=== PATIENT | female | born 1950 | race Caucasian/White ===

== ENCOUNTER → 2018-05-01 07:34 | Outpatient (CLI) | payer MEDICARE, SELFPAY ==
--- NOTE | 2018-05-01 07:34 | DT_ITS ---
This patient was seen during an EMR downtime April 28, 2018 - May 05, 2018. This patient may have a combination of paper and electronic documentation or all paper documentation. All documentation is viewable within the e-chart portion of [facility] for each patient visit.
--- NOTE | 2018-05-01 07:41 | BI_ITS ---
MAMMOGRAPHY - BILATERAL SCREENING REASON FOR EXAM: Female, 67 years old. Routine annual screening examination. PERTINENT HISTORY: FAM HX OF PAT GRANDMOTHER @ AGE 58 T MAT AUNT @ AGE 50'S - RT NEEDLE BX 1999 - RT KERATOSIS AND LT MOLE - CURRENT BRUISE MEDIAL LT BREAST TECHNIQUE: Digital bilateral breast annette (3D mammographic acquisition) in the CC and MLO projections. 2-D mediolateral oblique (MLO) and craniocaudad (CC) views of both breasts were obtained. CAD: Full Field Digital Mammography with Computer Added Detection was performed. COMPARISON: 05/03/2016 and 04/21/2015 FINDINGS: Breast Composition: The breasts are heterogeneously dense, which may obscure small masses. There are no dominant masses or suspicious calcifications. No other significant abnormalities are identified. BI/SCREENING MAMM (CAD), BILAT IMPRESSION: Stable bilateral screening mammogram. Yearly follow-up mammogram recommended. (A) ASSESSMENT CATEGORY: BIRADS Category 2: Benign. A letter regarding these results will be sent to the patient by the facility within 30 days. Approximately 10% of breast cancers are not detected by mammography. A normal mammogram should not delay biopsy of a clinically suspicious abnormality. [id number] Electronically Signed: Sarah Arambula MD at 15:42 EDT Tel , Service support ,
== END ==
PROVIDERS: Family Provider Internal Medicine; PCP Internal Medicine; Visit Provider Internal Medicine
DX: Z12.31 Encounter for screening mammogram for malignant neoplasm of breast (principal); Z78.0 Asymptomatic menopausal state
CPT/HCPCS: 77063; 77067

== ENCOUNTER → 2018-05-06 10:33 | Outpatient (CLI) | payer MEDICARE, SELFPAY ==
--- NOTE | 2018-05-06 10:34 | BD_ITS ---
STUDY: DUAL ENERGY X-RAY ABSORPTIOMETRY / DXA REASON FOR EXAM: Female, 67 years old. Postmenopausal female. History of hormone therapy high exercise. TECHNIQUE: Bone Mineral Density (BMD) measurements of lumbar spine and bilateral hips were obtained. COMPARISON: May 03, 2016. FINDINGS: Lumbar Spine (L1-L4): g/cm2 (1.010) / T-score (-1.6) / Z-score (0.1) Findings are suggestive of osteopenia with a moderate fracture risk. Left Femur Total: g/cm2 (0.860) / T-score (-1.2) / Z-score (0.3) Left Femoral Neck: g/cm2 (0.747) / T-score (-2.1) / Z-score (-0.4) Right Femur Total: g/cm2 (0.860) / T-score (-1.2) / Z-score (0.3) Right Femoral Neck: g/cm2 (0.778) / T-score (-1.9) / Z-score (0.2) The T-Scores on the most recent prior examination were: Lumbar Spine (L1-L4): There has been worsening of bone density since the previous examination of -6.9%. Left Femur Total: There is worsening of the bone mineral density by -5%. Right Femur Total: There is worsening of the bone mineral density by -4% BD/Dexa Bone Density Study IMPRESSION: The patient is considered osteopenic as outlined below according to World Solomon Organization (WHO) criteria with a moderate fracture risk. There has been worsening of bone density since the previous examination. Reference Information: The T-score is the number of standard deviations above or below the standard which is normal for young adults at their peak bone mineral density. The World Health Organization (WHO) interprets the T-scores as follows: Above -1 Normal bone density Between -1 and -2.5 Osteopenia Equal to / or below -2.5 Osteoporosis As a practical clinical guideline, osteopenia may be graded as follows: Mild -1 through -1.5 Moderate -1.6 through -2.0 Severe -2.1 through -2.4 The Z-score is the number of standard deviations above or below age-matched controls. A Z-score of less than -1.5 would be considered abnormal. References: 1. NIH Osteoporosis and Related Bone Diseases http://www.osteo.org 2. International Society for Clinical Densitometry http://www.iscd.org 3. National Osteoporosis Foundation http://www.nof.org Electronically Signed: Bernabe Krueger DO at 11:16 EDT Tel [phone], Service support ,
== END ==
PROVIDERS: Family Provider Internal Medicine; PCP Internal Medicine; Visit Provider Internal Medicine
DX: Z78.0 Asymptomatic menopausal state (principal); M85.80 Other specified disorders of bone density and structure, unspecified site
CPT/HCPCS: 77080

== ENCOUNTER → 2018-09-23 08:55 | Outpatient (CLI) | payer MEDICARE, SELFPAY | PROVIDERS: Family Provider Internal Medicine; PCP Internal Medicine; Referring Provider Nurse Practitioner; Visit Provider Nurse Practitioner | DX: R55 Syncope and collapse (principal) | CPT/HCPCS: 93225; 93226 ==

== ENCOUNTER → 2018-09-26 15:39 | Outpatient (CLI) | payer MEDICARE, SELFPAY ==
--- NOTE | 2018-09-26 15:45 | ECHOD_ITS ---
Reason For Study: SYNCOPE Procedure This was a 2D Doppler, Color Flow transthoracic echocardiogram. The exam was of adequate technical quality. Exam performed in department. Left Ventricle Normal LV size. Left ventricular systolic function is normal. The estimated ejection fraction is 65 %. The global longitudinal strain = -21 % (normal). Diastolic function is indeterminate. No regional wall motion abnormalities noted. Right Ventricle Normal RV size. Normal systolic function. Atria The left atrium is mildly enlarged. Normal right atrium. No doppler evidence for ASD. Mitral Valve There is no mitral annular calcification. Mild diffuse mitral valve thickening. Equivocal mitral valve prolapse. Trivial mitral valve insufficiency. Tricuspid Valve Normal tricuspid valve. Mild tricuspid valve insufficiency. Right ventricular systolic pressure estimated to be 27 mmHg. Aortic Valve Trisinus/trileaflet aortic valve. Normal aortic valve. Pulmonic Valve The pulmonic valve is not well visualized. Trivial pulmonic valve insufficiency. Great Vessels Normal sized aortic root. Pericardium/Pleural No pericardial effusion. MMode/2D Measurements & Calculations LVIDd: 4.0 cm IVSd: 1.2 cm Ao root diam: 3.3 cm LVIDs: 2.2 cm LVPWd: 1.2 cm RVDd: 2.7 cm FS: 43.9 % LAV(MOD-bp): 39.5 ml LA A4 area: 16.3 cm2 LA dimension(2D): 3.7 cm LAV(MOD-bp) Indexed: 20.0 ml/m2 LAV(MOD-sp2): 32.9 ml LAV(MOD-sp4): 42.9 ml RA A4 area: 10.2 cm2 Time Measurements MV dec time: 0.29 sec Doppler Measurements & Calculations MV E max broderick: 69.9 cm/sec Lat Peak E' Broderick: 5.7 cm/sec Med Peak E' Broderick: 4.4 cm/sec MV A max broderick: 100.5 cm/sec E/E' lat: 12.3 E/E' med: 15.9 MV E/A: 0.70 Ao V2 max: 186.3 cm/sec LV V1 max: 125.2 cm/sec PA V2 max: 103.6 cm/sec Ao max P.9 mmHg LV V1 max P.3 mmHg TR max broderick: 245.6 cm/sec TR max P.1 mmHg Interpretation Summary Left ventricular systolic function is normal. The estimated ejection fraction is 65 %. The global longitudinal strain = -21 % (normal). The left atrium is mildly enlarged. Equivocal mitral valve prolapse. Mild diffuse mitral valve thickening. Trivial mitral valve insufficiency. Mild tricuspid valve insufficiency. Trivial pulmonic valve insufficiency. Right ventricular systolic pressure estimated to be 27 mmHg. Diastolic function is indeterminate. Ordering Physician: Mallorie Dai Referring Physician: FELICITY MEJIA Performed By: Juli Mora, COLBY, RVT
== END ==
PROVIDERS: Family Provider Internal Medicine; PCP Internal Medicine; Referring Provider Nurse Practitioner; Visit Provider Nurse Practitioner
DX: R55 Syncope and collapse (principal)
CPT/HCPCS: 93306

== ENCOUNTER → 2018-10-07 06:53 | Outpatient (CLI) | payer MEDICARE, SELFPAY ==
--- NOTE | 2018-10-07 07:38 | CDU_ITS ---
Reason For Study: neck pain Rt. Velocities/BP Lt. Velocities/BP Prox CCA 103/18.8 cm/sec. Prox CCA 83.3/14.7 cm/sec. Mid CCA 76.2/15.8 cm/sec. Mid CCA 83.8/19.9 cm/sec. Dist CCA 76.8/18.8 cm/sec. Dist CCA 75.6/18.2 cm/sec. Prox ICA 51.6/15.8 cm/sec. Prox ICA 53.4/15.8 cm/sec. Mid ICA 74.5/19.9 cm/sec. Mid ICA 69.2/19.9 cm/sec. Dist ICA 103/27.6 cm/sec. Dist ICA 114/33.4 cm/sec. Rt. ICA/CCA = 1.4. Lt. ICA/CCA = 1.4. Prox ECA 64.5/11.7 cm/sec. Prox ECA 62.7/10.6 cm/sec. Rt. Vert. 55.1/11.1 cm/sec. Lt. Vert. 64.5/14.7 cm/sec. Right Extracranial There is intimal thickening but no significant atherosclerotic plaque noted in the right common carotid artery. There is intimal thickening but no significant atherosclerotic plaque noted in the right internal carotid artery. There is intimal thickening but no significant atherosclerotic plaque noted in the right external carotid artery. Antegrade flow is noted in the right vertebral artery. Left Extracranial There is intimal thickening but no significant atherosclerotic plaque noted in the left common carotid artery. There is intimal thickening but no significant atherosclerotic plaque noted in the left internal carotid artery. There is intimal thickening but no significant atherosclerotic plaque noted in the left external carotid artery. Antegrade flow is noted in the left vertebral artery. Procedure Carotid Duplex [id number]. The exam was diagnostic. Exam performed in department. Interpretation Summary No significant atherosclerotic plaque or stenosis noted in the internal carotid arteries bilaterally. Flow within the vertebral arteries is antegrade bilaterally. Ordering Physician: Sophia Reza Performed By: Germán Butler RVT
--- NOTE | 2018-10-07 14:32 | STRESSREP ---
Stress Test Report Date: 10/07/2018 Procedure: Pharmacologic stress nuclear imaging study Indications: Chest pain Consent: Per the patient Procedure: The patient underwent pharmacologic (Regadenoson) evaluation with a peak heart rate of 76 beats per minute (50 predicted maximal heart rate) and a peak blood pressure of 140/72 mmHg. The baseline ECG demonstrated sinus bradycardia. The peak pharmacologic ECG demonstrated no obvious ECG changes. There were no cardiac dysrhythmias pretest, during pharmacologic infusion, or recovery. There was no complaint of chest discomfort during pharmacologic infusion or recovery. The examination was discontinued secondary to completion of protocol. Impression: 1. Pharmacologic (Regadenoson) evaluation 2. Peak pharmacologic ECG with no obvious ECG changes. 3. There were no cardiac dysrhythmias pretest, during pharmacologic infusion, or recovery. 4. Nuclear images pending Myocardial perfusion imaging study: Technique: The patient was injected with 11.6 millicuries of technetium 99m Cardiolite and subsequently rest SPECT Cardiolite nuclear imaging was obtained in the horizontal long, vertical long, and short axis views. The patient underwent pharmacologic (Regadenoson) evaluation with a peak heart rate of 76 beats per minute (50 % percent predicted maximal heart rate) and a peak blood pressure of 140/72 mmHg. The patient was injected with 33.7 millicuries of technetium 99m Cardiolite and subsequently stress SPECT Cardiolite nuclear imaging was obtained in the horizontal long, vertical long, and short axis views. A gated Cardiolite study at peak stress was obtained. Interpretation: Rest and stress SPECT Cardiolite nuclear imaging status post realignment, normalization, and attenuation correction demonstrate uniform tracer uptake in myocardial perfusion appearing within normal limits. There are no myocardial perfusion deficits appreciated on the resting or stress polar map images. There is end systolic thickening and brightening. The gated Cardiolite study demonstrates myocardial thickening and inward wall motion. The reported LVEF is 87 %. Impression: 1. Rest and stress SPECT Cardiolite nuclear imaging demonstrate relative uniform tracer uptake and myocardial perfusion appearing within normal limits. 2. The gated Cardiolite study reports an LVEF of 87 %. This note was generated with [employer] software. It may contain incorrect words, spelling, and punctuation that were not noted in checking the note before signing.
== END ==
PROVIDERS: Family Provider Internal Medicine; PCP Internal Medicine; Referring Provider Internal Medicine; Visit Provider Internal Medicine
DX: R07.89 Other chest pain (principal); R55 Syncope and collapse
CPT/HCPCS: 78452; 93017; 93880; A9500; A4216; J2785

== ENCOUNTER → 2019-09-30 09:18 | Outpatient (CLI) | payer MEDICARE, SELFPAY ==
[2018-10-09 15:27] VITALS: BMI 30.7
--- NOTE | 2019-09-30 09:27 | ECHOD_ITS ---
Reason For Study: IVCD Procedure This was a 2D Doppler, Color Flow transthoracic echocardiogram. Exam performed in department. Left Ventricle Normal LV size. The estimated ejection fraction is 60 %. Normal diastology for age. No regional wall motion abnormalities noted. Right Ventricle Normal RV size. Normal systolic function. Atria Normal left atrium. Normal right atrium. Mitral Valve There is no mitral valve stenosis. Trivial mitral valve insufficiency. Tricuspid Valve There is no tricuspid stenosis. Trivial tricuspid valve insufficiency. Pulmonary artery systolic pressure is 25 mmHg. Aortic Valve Trisinus/trileaflet aortic valve. There is no aortic stenosis. Trivial aortic valve insufficiency. Pulmonic Valve There is no pulmonic valvular stenosis. Trivial pulmonic valve insufficiency. Great Vessels Normal aortic root. Pericardium/Pleural No pericardial effusion. MMode/2D Measurements & Calculations LVIDd: 4.9 cm IVSd: 1.0 cm Ao root diam: 3.0 cm LVIDs: 3.0 cm LVPWd: 0.99 cm RVDd: 2.9 cm FS: 39.4 % LAV(MOD-bp): 40.9 ml LVAd ap4: 21.2 cm2 SV(MOD-sp4): 34.4 ml LAV(MOD-bp) Indexed: 22.7 ml/m2 EDV(MOD-sp4): 55.1 ml LAV(MOD-sp2): 43.3 ml EDV(sp4-el): 56.2 ml LAV(MOD-sp4): 37.9 ml LVAs ap4: 11.7 cm2 ESV(MOD-sp4): 20.7 ml ESV(sp4-el): 20.6 ml EF(MOD-sp4): 62.4 % EF(sp4-el): 63.4 % SV(sp4-el): 35.6 ml LA A4 area: 16.0 cm2 LA dimension(2D): 3.8 cm RA A4 area: 14.1 cm2 Doppler Measurements & Calculations MV E max broderick: 76.8 cm/sec Lat Peak E' Broderick: 7.0 cm/sec Med Peak E' Broderick: 4.9 cm/sec MV A max broderick: 82.8 cm/sec E/E' lat: 11.0 E/E' med: 15.7 MV E/A: 0.93 Ao V2 max: 148.8 cm/sec LV V1 max: 117.3 cm/sec PA V2 max: 85.7 cm/sec Ao max P.9 mmHg LV V1 max P.5 mmHg Ao V2 mean: 102.8 cm/sec Ao mean P.6 mmHg Ao V2 VTI: 37.9 cm PI end-d broderick: 76.1 cm/sec TR max broderick: 248.1 cm/sec TR max P.6 mmHg Interpretation Summary The estimated ejection fraction is 60 %. Trivial mitral valve insufficiency. Trivial tricuspid valve insufficiency. Pulmonary artery systolic pressure is 25 mmHg. Trivial aortic valve insufficiency. Ordering Physician: Sophia Reza Referring Physician: Sophia Reza Performed By: Yamileth Causey, COLBY, RVT
== END ==
PROVIDERS: Family Provider Internal Medicine; PCP Internal Medicine; Referring Provider Internal Medicine; Visit Provider Internal Medicine
DX: I45.4 Nonspecific intraventricular block (principal)
CPT/HCPCS: 93306

== ENCOUNTER → 2019-11-05 12:47 | Outpatient (CLI) | payer MEDICARE, SELFPAY ==
[2018-10-09 15:27] VITALS: BMI 30.7
[2019-10-28 15:14] VITALS: BMI 26.2
--- NOTE | 2019-11-05 12:49 | BI_ITS ---
MAMMOGRAPHY - BILATERAL SCREENING REASON FOR EXAM: Female, 69 years old. Routine annual screening examination. PERTINENT HISTORY: Grandmother with breast cancer. Remote right surgical breast biopsy. TECHNIQUE: Digital bilateral breast rani (3D mammographic acquisition) in the CC and MLO projections. 2-D mediolateral oblique (MLO) and craniocaudad (CC) views of both breasts were obtained. CAD: Full Field Digital Mammography with Computer Added Detection was performed. COMPARISON: Comparison is made with prior study dated May 01, 2018 and May 03, 2016. FINDINGS: Breast Composition: The breasts are heterogeneously dense, which may obscure small masses. There are no dominant masses or suspicious calcifications. Focal scar is seen in the deep slightly upper lateral portion of the right breast in keeping with prior surgical biopsy. No other significant abnormalities are identified. There has been no significant change since the prior study. BI/SCREEN MAMM (CAD) W/RANI BILAT IMPRESSION: Stable bilateral screening mammogram. Yearly follow-up mammogram recommended. (A) ASSESSMENT CATEGORY: BIRADS Category 2: Benign. A letter regarding these results will be sent to the patient by the facility within 30 days. Approximately 10% of breast cancers are not detected by mammography. A normal mammogram should not delay biopsy of a clinically suspicious abnormality. [id number] Electronically Signed: Mina Berry, at 14:19 EST , Service support ,
== END ==
PROVIDERS: Family Provider Internal Medicine; PCP Internal Medicine; Referring Provider Internal Medicine; Visit Provider Internal Medicine
DX: Z12.31 Encounter for screening mammogram for malignant neoplasm of breast (principal); Z78.0 Asymptomatic menopausal state; Z80.3 Family history of malignant neoplasm of breast
CPT/HCPCS: 77063; 77067

== ENCOUNTER → 2020-03-15 08:17 | Outpatient (CLI) | payer MEDICARE, SELFPAY ==
[2019-10-28 15:14] VITALS: BMI 26.2
--- NOTE | 2020-03-15 08:21 | CT_ITS ---
STUDY: CT BRAIN WITHOUT CONTRAST REASON FOR EXAM: Female, 69 years old. HEADACHE X 2 MONTHS RADIATION DOSAGE (If Supplied By Facility): CTDIvol = ( 44.99 ) mGy, DLP = ( 745.49 ) mGycm TECHNIQUE: Transaxial CT imaging of the brain was performed without administration of intravenous contrast material. Individualized dose optimization techniques were used for this CT. COMPARISON: No relevant priors. FINDINGS: Normal soft tissue structures. Normal calvarium. Technique calcification is seen along the anterior aspect of the roof of the third ventricle. A tiny colloid cyst should be ruled out. There is mild cerebral atrophy with widening of the extra-axial spaces and ventricular dilatation. There are areas of decreased attenuation within the white matter tracts of the supratentorial brain, consistent with microvascular disease changes. There are small punctate calcifications of the basal ganglia which are seen in the aging brain as a normal variant. Normal brainstem. Normal cerebellum. There is no intracranial hemorrhage. There are no findings of an acute ischemic infarction. Atherosclerotic calcification of the cavernous portions of the internal carotid arteries bilaterally. Normal visualized paranasal sinuses. CT/Brain/Head without Contrast IMPRESSION: Chronic involutional changes of the brain. Tiny calcification is seen along the roof of the anterior aspect of the third ventricle. A tiny colloid cyst should be ruled out. Electronically Signed: Mina Berry, at 8:45 EDT , Service support ,
== END ==
PROVIDERS: PCP Internal Medicine; Referring Provider Internal Medicine; Visit Provider Internal Medicine
DX: R51 Headache (principal)
CPT/HCPCS: 70450

== ENCOUNTER → 2020-03-28 12:24 | Outpatient (CLI) | payer MEDICARE, SELFPAY ==
[2019-10-28 15:14] VITALS: BMI 26.2
--- NOTE | 2020-03-28 12:32 | MRI_ITS ---
STUDY: MRI BRAIN WITHOUT CONTRAST REASON FOR EXAM: Female, [address] -- galarza''s, left eye pain x 4 months, NKI TECHNIQUE: Standardized multiplanar fat and water weighted pulse sequences were obtained. COMPARISON: None. FINDINGS: There is mild cerebral atrophy with widening of the extra-axial spaces and ventricular dilatation. There are a limited number of small white matter hyperintensities, distributed throughout the deep white matter tracts of the cerebral hemispheres, consistent with mild chronic white matter ischemic changes. There is no evidence for recent intracranial ischemia or other cause of cytotoxic edema on diffusion weighted imaging (DWI). Normal T2* images of the brain without demonstrated susceptibility artifact. There is no demonstrated hemosiderin stain. Normal bilateral basal ganglia. Normal thalami. There is no extra-axial fluid accumulation. Normal flow voids within the major intracranial circulation suggesting patency by spin echo criteria. Normal sella turcica, pituitary gland, infundibular stalk, optic chiasm and hypothalamus. Normal tectal plate and pineal gland. Normal midbrain, tony and medulla. Normal cerebellum. Normal basal cisterns. Normal bilateral temporal bones. Normal bilateral internal auditory canals. No demonstrated orbital abnormality, within the constraints of a routine brain study. Normal visualized paranasal sinuses. Normal calvarium and skull base. Normal visualized soft tissue structures. Normal visualized upper cervical spine. MRI/Brain without Contrast IMPRESSION: Involutional changes of the brain, as described above. No acute infarct. Electronically Signed: Davidson Quiroga MD at 13:43 EDT Tel , Service support ,
== END ==
PROVIDERS: PCP Internal Medicine; Referring Provider Internal Medicine; Visit Provider Internal Medicine
DX: R90.89 Other abnormal findings on diagnostic imaging of central nervous system (principal)
CPT/HCPCS: 70551

== ENCOUNTER 2021-01-18 10:23 | Outpatient (RCR) | payer MEDICARE, SELFPAY ==
[2020-05-25 11:53] VITALS: BMI 26.9
== END 2021-01-18 23:59 ==
LOC: IMMUN 10:23
PROVIDERS: PCP Internal Medicine; Referring Provider Family Medicine; Visit Provider Family Medicine
DX: Z23 Encounter for immunization (principal)
CPT/HCPCS: 0011A; 0012A; 91301

== ENCOUNTER 2022-09-02 08:55 | Emergency (ER) | payer MEDICARE, SELFPAY ==
[2022-09-02 08:57] VITALS: BP 116/67; PULSE 63; RESP 14; TEMP 36.1; O2SAT 100; BMI 28.3
--- NOTE | 2022-09-02 09:03 | EX.ED.UPPERE ---
HPI History of Present Illness Chief Complaint: Upper Extremity Injury Narrative Narrative: Patient presents with her significant other with injury to her right wrist that she sustained this morning. They state that there was a dog gate/baby gate at the bottom of the stairs to prevent the dogs from going up the stairs. Usually, when the patient comes downstairs, she removes the gait, but today she tried to step over it. She tripped and fell onto her right wrist onto hardwood floor/tile. She denies hitting her head or loss of consciousness. She complains of deformity to her right wrist with pain and swelling. She did vomit once when she went back upstairs to get dressed to come to the emergency department. They state it was a very small amount. They thought it was most likely secondary to pain. She denies other injury. She is right-hand dominant. [facility] Medical History (Updated 09/02/22 @ 11:17 by Matthew Arroyo MD) Atherosclerotic heart disease of [place] coronary artery without angina pectoris Benign essential hypertension CAD (coronary artery disease) Essential hypertension Gastroesophageal reflux disease Hypothyroidism IBS (irritable bowel syndrome) Non-rheumatic mitral regurgitation Obstructive sleep apnea syndrome Presence of stent in coronary artery (~07/08/09) Pure hypercholesterolemia Home Medications amlodipine 5 mg-benazepril 20 mg capsule (Lotrel) 1 cap PO DAILY 10/07/18 [History Last Taken Unknown] aspirin 325 mg tablet 325 mg PO DAILY 10/07/18 [History Last Taken Unknown] fenofibrate 160 mg tablet 160 mg PO DAILY 10/07/18 [History Last Taken Unknown] lansoprazole 30 mg capsule,delayed release (Prevacid) 30 mg PO DAILY 10/07/18 [History Last Taken Unknown] levothyroxine 75 mcg tablet (Synthroid) 75 mcg PO DAILY 10/07/18 [History Last Taken Unknown] naproxen sodium 220 mg tablet (Aleve) 220 mg PO BID PRN 10/07/18 [History Last Taken Unknown] oxybutynin chloride 5 mg tablet,extended release 24 hr (Ditropan XL) 5 mg PO DAILY 10/07/18 [History Last Taken Unknown] rosuvastatin 20 mg tablet (Crestor) 20 mg PO DAILY 10/07/18 [History Last Taken Unknown] sucralfate 1 gram tablet 1 g PO BID 10/07/18 [History Last Taken Unknown] escitalopram oxalate 20 mg tablet (Lexapro) 20 mg PO DAILY 10/09/18 [History Last Taken Unknown] calcium carb 300 mg-D3 800 unit-mag ox 25 mg-photocopying equipment mechanic 0.5 mg-chase-Zn tablet (Caltrate + D3 Plus Minerals) 1 tab PO DAILY 10/28/19 [History Last Taken Unknown] metoprolol tartrate 25 mg tablet 12.5 mg PO BID 10/28/19 [History Last Taken Unknown] nitroglycerin 0.4 mg sublingual tablet 0.4 mg sublingual Q5-15M PRN chest pain #25 tabs 10/28/19 [Rx Last Taken Unknown] hydrocodone-acetaminophen 5-325mg 5mg-325mg 1 tab PO Q6H PRN pain 3 days #12 tabs 09/02/22 [Rx Last Taken Unknown] Allergy/AdvReac Type Severity Reaction Status Date / Time clopidogrel Allergy Severe Rash Verified 09/02/22 08:59 milk Allergy Unknown Unknown Verified 09/02/22 08:59 ezetimibe [From Vytorin] AdvReac Severe myalgias Verified 09/02/22 08:59 simvastatin [From Vytorin] AdvReac Severe myalgias Verified 09/02/22 08:59 fenofibrate [From Tricor] AdvReac Unknown Unknown Verified 09/02/22 08:59 Family History Mother CAD (coronary artery disease) History of coronary artery bypass surgery Surgical History History of appendectomy History of total hysterectomy Presence of coronary angioplasty implant and graft (~07/08/09) Social History Smoking Status: Never smoker alcohol intake: current details: occasional ROS ROS ED ROS Narrative Constitutional: No fever, no chills. HEENT: No sore throat. No neck pain. No loss of vision. No rhinorrhea. Cardiovascular: No chest pain. No palpitations. No pedal edema. Respiratory: No cough, no shortness of breath. Abdominal: No abdominal pain. No nausea. No vomiting. Genitourinary: No dysuria. No hematuria. Musculoskeletal: No myalgias. Right wrist pain and deformity. Neurologic: No headaches. No dizziness. No lightheadedness. Skin: No rash. No change in color. Psychiatric: No depression. No anxiety. EXAM Physical Exam Narrative Exam Narrative: Afebrile. Vital signs noted. HEENT: Normocephalic. Atraumatic. PERRL, EOMI. Neck soft and supple. No point tenderness or step off. Cardiovascular: Regular rate and rhythm. No murmurs, rubs, or gallops appreciated. Respiratory: No tachypnea. Lungs clear to auscultation bilaterally. Gastrointestinal: Abdomen soft, nontender, with normoactive bowel sounds. No rebound or guarding. Neurological: Awake. Alert. Nonfocal, nonlateralizing. Skin: No rash. Normal color. No pallor. Musculoskeletal: No pedal edema. Positive right wrist deformity with lateral angulation. Palpable radial pulse. Able to abduct and abduct fingers. Able to oppose thumb. Uninjured at elbow and above. Good capillary refill. Const Vital Signs: 09/02/22 08:57 Temperature 97.0 F L Temperature Source Temporal Pulse Rate 63 Respiratory Rate 14 Blood Pressure 116/67 Blood Pressure Mean 83 Pulse Ox 100 Oxygen Delivery Method Room Air MDM MDM MDM Narrative Medical decision making narrative: Patient was given a [place] tablet for analgesia. X-rays were obtained of the right wrist and 3 views, interpreted by myself. There is a comminuted, impacted distal radius fracture that is intra-articular. There is fragment shift both medially and dorsally. I discussed the patient with Dr. Bloom with orthopedics who agrees with hematoma block, anterior posterior splint after reduction, and follow-up as an outpatient. She will be given a prescription for 3 days worth of [place]. I obtained x-rays postreduction and interpreted them myself. Given the nature of the comminuted fracture, there is improved lateral alignment, but there has been splitting of the distal fragment both dorsally and volarly and the patient was not brought out to proper length. I rediscussed the patient with Dr. Bloom who agrees with splinting the patient, and having her follow-up closely in the office because she will most likely require ORIF. She is given a prescription for [place]. Disposition is discharged home in stable condition. Discharge Plan Triage Chief Complaint: Upper Extremity Injury ED Provider: Matthew Arroyo Dx/Rx/DC Orders Clinical Impression: Distal radius fracture, right, Fall Instructions: ED Forearm Fracture with Reduction Prescriptions: New hydrocodone-acetaminophen 5-325 mg tablet 1 tab PO Q6H PRN (Reason: pain) 3 Days Qty: 12 0RF No Action levothyroxine [Synthroid] 75 mcg tablet 75 mcg PO DAILY amlodipine-benazepril [Lotrel] 5-20 mg capsule 1 cap PO DAILY oxybutynin chloride [Ditropan XL] 5 mg tablet extended release 24hr 5 mg PO DAILY rosuvastatin [Crestor] 20 mg tablet 20 mg PO DAILY fenofibrate 160 mg tablet 160 mg tablet 160 mg PO DAILY sucralfate 1 gram tablet 1 g PO BID lansoprazole [Prevacid] 30 mg capsule,delayed release(DR/EC) 30 mg PO DAILY naproxen sodium [Aleve] 220 mg tablet 220 mg PO BID PRN aspirin 325 mg tablet 325 mg PO DAILY escitalopram oxalate [Lexapro] 20 mg tablet 20 mg PO DAILY metoprolol tartrate 25 mg tablet 12.5 mg PO BID Caltrate + D3 Plus Minerals 300 mg-800 unit -25 mg-0.5 mg tablet 1 tab PO DAILY nitroglycerin 0.4 mg tablet, sublingual 0.4 mg SUBLINGUAL Q5-15M PRN (Reason: chest pain) Qty: 25 1RF Primary Care Provider: Sophia Reza Referrals: Sophia Reza DO [Primary Care Provider] - Lon Bloom DO [Med Staff - Active Staff] - 3-5 Days Activity Restrictions/Additional Instructions: Call orthopedics tomorrow for an appointment to be seen within the next week. Continue ice and elevation of your right upper extremity. Disposition Disposition: Home, Self Care
--- NOTE | 2022-09-02 09:07 | RAD_ITS ---
STUDY: X-RAY - RIGHT WRIST REASON FOR EXAM: Female, 72 years old. Trauma, pain TECHNIQUE: 2 view(s) of the wrist were obtained. COMPARISON: None. FINDINGS: There is a comminuted, impacted and intra-articular distal radial fracture. There is medial and dorsal displacement of a distal bone fragment. Normal visualized distal ulna. Normal carpal bones. Normal carpal articulations. Normal carpometacarpal articulation of the thumb. Normal second through fifth carpometacarpal articulations. Normal visualized metacarpal bones. The soft tissue structures are unremarkable. RAD/Wrist min 3 Views IMPRESSION: Distal radial fracture. Electronically Signed: Senia Carroll MD at 9:31 EDT ,
[2022-09-02] MEDS: HYDROcodone Bitartrate/Apap 5/325 Tablet PO (09:12)
--- NOTE | 2022-09-02 11:11 | RAD_ITS ---
STUDY: X-RAY - RIGHT WRIST REASON FOR EXAM: Female, 72 years old. Post reduction TECHNIQUE: 3 view(s) of the wrist were obtained. COMPARISON: 09/12/2022 FINDINGS: Overlying bandage material obscures anatomic detail. There is a comminuted, intra-articular and impacted distal radial fracture, with slightly improved alignment since the prior examination. There is a persistent laterally displaced bony fragment. Normal visualized distal ulna. Normal distal radioulnar articulation. Normal carpal bones. Normal carpal articulations. There is degenerative arthrosis of the carpometacarpal articulation of the thumb. Normal second through fifth carpometacarpal articulations. Normal visualized metacarpal bones. The soft tissue structures are unremarkable. RAD/Wrist min 3 Views IMPRESSION: Comminuted distal radial fracture with improved alignment. Electronically Signed: Senia Carroll MD at 11:50 EDT ,
[2022-09-02 12:06] VITALS: BP 130/74; RESP 17
== END 2022-09-02 12:08 | disposition home or self-care (01) ==
PROVIDERS: Emergency Provider Emergency Medicine; PCP Internal Medicine; Visit Provider Emergency Medicine
DX: S52.571A Other intraarticular fracture of lower end of right radius, initial encounter for closed fracture (principal); W18.09XA Striking against other object with subsequent fall, initial encounter; Y92.9 Unspecified place or not applicable; I25.10 Atherosclerotic heart disease of native coronary artery without angina pectoris; I10 Essential (primary) hypertension; E78.00 Pure hypercholesterolemia, unspecified; E03.9 Hypothyroidism, unspecified; K58.9 Irritable bowel syndrome, unspecified; G47.33 Obstructive sleep apnea (adult) (pediatric); K21.9 Gastro-esophageal reflux disease without esophagitis; Z79.82 Long term (current) use of aspirin; Z79.1 Long term (current) use of non-steroidal anti-inflammatories (NSAID); Z79.890 Hormone replacement therapy; Z79.899 Other long term (current) drug therapy; Z95.5 Presence of coronary angioplasty implant and graft
CPT/HCPCS: 25600; 29125; 73110; 99283

== ENCOUNTER 2022-09-13 10:26 | Day surgery (SDC) | payer MEDICARE, SELFPAY ==
--- NOTE | 2022-09-12 10:41 | EKG12_ITS ---
Test Reason : PRE OP Blood Pressure : / mmHG Vent. Rate : 075 BPM Atrial Rate : 075 BPM P-R Int : 154 ms QRS Dur : 078 ms QT Int : 396 ms P-R-T Axes : 069 021 076 degrees QTc Int : 442 ms Normal sinus rhythm Low voltage QRS Borderline ECG Confirmed by ROXANNE ARREAGA, ARAVIND ([id number]), health editor TERESE PRINGLE ([id number]) on 09/13/2022 12:44:19 PM Referred By: Jr Monzon Confirmed By:ARAVIND OLIVEIRA MD
--- NOTE | 2022-09-12 11:09 | RAD_ITS ---
STUDY: X-RAY CHEST REASON FOR EXAM: Female, 72 years old. Pre-op for wrist surgery TECHNIQUE: PA and lateral views of the chest. COMPARISON: None. FINDINGS: The lungs are clear and expanded. There is no demonstrated pleural abnormality. Normal size heart. Normal mediastinum and bronwyn. Normal visualized pulmonary arteries. There is atherosclerotic calcification of the aortic arch with tortuosity. Normal visualized thoracic spine. Normal visualized ribs, clavicles, and shoulders. There is no demonstrated abnormality of the visualized soft tissue structures of the upper abdomen. RAD/Chest PA and Lateral IMPRESSION: No acute pulmonary process Electronically Signed: Constantino Jamison MD at 11:27 EDT ,
[2022-09-12 11:55] LABS: Absolute Lymphocyte Count 1.15 X10^3/uL (0.83-4.51); Absolute Neutrophil Count 5.5 X10^3/uL (2.0-7.7); Basophil# 0.04 X10^3/uL; Basophil% 0.5 % (0-1); Eosinophil# 0.07 X10^3/uL; Hematocrit 41.5 % (37-47); Hemoglobin 13.9 g/dL (12.0-15.0); Lymphocyte # 1.15 X10^3/ul (0.83-4.51); Lymphocyte % 15.8 % (19-41); Mean Corp Hgb Conc 33.5 g/dL (32-36); Mean Corpuscular Hgb 29.8 pg (27.0-32.0); Mean Corpuscular Volume 88.9 fL (81-99); Mean Platelet Vol. 10.7 fl (6.2-12.0); Monocyte# 0.53 X10^3/uL; Monocyte% 7.3 % (0-10); NRBC Flagged by Analyzer 0 % (0-5); Neutrophil # 5.49 X10^3/uL (2.7-7.7); Neutrophil % 75.1 % (47-70); Platelet Count 250 K/mm3 (150-450); RBC Distribution Width CV 12.8 % (11.6-14.6); RBC Distribution Width SD 41.7 fl (35.1-43.9); Red Blood Count 4.67 M/mm3 (4.2-5.4); White Blood Count 7.3 K/mm3 (4.4-11.0)
[2022-09-12 12:51] LABS: Anion Gap 4 (5-15); BUN 14 mg/dL (7-18); BUN/Creat Ratio 17.1 RATIO (10-20); Calcium,Total 9.3 mg/dL (8.5-10.1); Chloride 110 mmol/L (98-107); Creatinine, Serum 0.82 mg/dL (0.55-1.02); EST Glomerular Filtration Rate 73 mL/min (>60); Est Glom Filt Rate - Afr Amer 88 mL/min (>60); Glucose 80 mg/dL (74-106); Potassium 3.8 mmol/L (3.5-5.1); Sodium Level 142 mmol/L (136-145); Thyroid Stim Hormone (TSH) 2.26 uIU/mL (0.358-3.74)
[2022-09-13 11:06] VITALS: BP 164/77; BMI 27.6
[2022-09-13] MEDS: Cefazolin 2 GM in 0.9% Normal Saline 100 ML IV (13:47)
--- NOTE | 2022-09-13 14:00 | RAD_ITS ---
STUDY: X-RAY - RIGHT WRIST REASON FOR EXAM: Female, 72 years old. Known fracture TECHNIQUE: Four intraoperative view(s) of the wrist were obtained. COMPARISON: None. FINDINGS: 4 Limited intraoperative studies performed as the patient has undergone open reduction internal fixation of the distal radial fracture with a dorsal plate. Plate is anchored in the distal radius and in the second metacarpal. Alignment at the fracture site is anatomic after hardware placement no intraoperative complications. Follow up recommended to assure complete osseous union RAD/Wrist 2 Views IMPRESSION: No intraoperative pelvic locations during open reduction internal fixation of a previously noted and described distal ulnar fracture with a dorsal plate anchored in the distal radius and second metacarpal Electronically Signed: Constantino Jamison MD at 14:59 EDT ,
--- NOTE | 2022-09-13 15:03 | DCINST_ITS ---
Discharge Instructions Follow Up Care Test Results: Test results from this visit will be discussed in further detail at your follow- up appointment, if applicable. Discharge Plan Admission Primary Reason for Your Visit: Right wrist fixation Attending Provider: Jr Monzon Primary Care Provider: Sophia Reza Instructions Additional Instructions / Restrictions: Follow preprinted instructions from your surgeons office Discharge Orders/Prescriptions Prescriptions: New oxycodone 5 mg tablet 5 mg PO Q6H PRN (Reason: pain) 7 Days Qty: 28 0RF Continued levothyroxine [Synthroid] 75 mcg tablet 88 mcg PO DAILY amlodipine-benazepril [Lotrel] 5-20 mg capsule 1 cap PO DAILY oxybutynin chloride [Ditropan XL] 5 mg tablet extended release 24hr 5 mg PO DAILY rosuvastatin [Crestor] 20 mg tablet 20 mg PO DAILY fenofibrate 160 mg tablet 160 mg tablet 160 mg PO DAILY sucralfate 1 gram tablet 1 g PO BID lansoprazole [Prevacid] 30 mg capsule,delayed release(DR/EC) 30 mg PO PRN PRN (Reason: Indigestion) escitalopram oxalate [Lexapro] 20 mg tablet 20 mg PO DAILY metoprolol tartrate 25 mg tablet 12.5 mg PO BID Caltrate + D3 Plus Minerals 300 mg-800 unit -25 mg-0.5 mg tablet 1 tab PO DAILY nitroglycerin 0.4 mg tablet, sublingual 0.4 mg SUBLINGUAL Q5-15M PRN (Reason: chest pain) Qty: 25 1RF hydrocodone-acetaminophen 5-325 mg tablet 1 tab PO Q6H PRN (Reason: pain) 3 Days Qty: 12 0RF Referrals / Follow Up: Sophia Reza DO [Primary Care Provider] - Jr Monzon DO [Med Staff - Active Staff] - Within 2 Weeks Disposition Disposition (needs filled in before D/C Order can be placed): Home, Self Care
[2022-09-13 15:18] VITALS: BP 149/79; BP 164/77; PULSE 63; RESP 16; TEMP 36.2; O2SAT 98
--- NOTE | 2022-09-13 15:24 | PCM.OPRPT ---
Report of Operation Date of Procedure: 09/13/22 Description of Surgical Findings:: Preoperative diagnosis: Right comminuted intra-articular distal radius fracture Postoperative diagnosis: Right comminuted intra-articular distal radius fracture Procedure: Application of dorsal spanning plate right distal radius Surgeon: Jr Monzon DO Log Buyer: Keyla Fajardo PA-C Anesthesia: General endotracheal with axillary block Anesthesiologist: Dr. Villanueva Complications: None Drains: None Estimated blood loss: 20 cc Urinary output: None recorded IV fluids: 600 cc crystalloid Specimens: None Surgical implants: Arthrex dorsal spanning plate with 2.7 mm cortical screws in the sec metacarpal and 3.5 mm cortical screws in the radial shaft Surgical indications: This is 72-year-old female seen in the outpatient setting after a fall down a single stair onto an outstretched right hand. She sustained a comminuted intra-articular distal radius fracture on 09/02/22. Closed reduction was attempted but resulted in unacceptable alignment. The degree of comminution certainly contributed to lack of improvement with a closed reduction. I saw the patient in the outpatient setting and recommended surgical intervention. I recommended a open reduction internal fixation of the right distal radius. We discussed the risks, benefits, alternatives. Risks included but were not limited to bleeding, flexion, loss of life or limb, need for additional surgery, persistent pain, nonhealing bone or wounds, neurovascular injury, tendon injury, loss of function of the hand, DVT or PE. Patient expressed understanding these risks and wished to proceed with surgery. Description of procedure: Patient was seen in preoperative holding area. She was identified by name, medical record number, date of . The operative extremity was marked with a surgical marker. We confirmed informed consent with the patient and all questions were answered to her satisfaction. An axillary block was placed in the PACU prior to the procedure by anesthesia staff. At time of her procedure, patient was brought to the operative suite and positioned supine on a standard operating table. All bony prominences were well-padded. General anesthesia was administered. After adequate anesthesia, a well-padded pneumatic tourniquet was applied to the upper arm of the operative extremity. We then spun the bed 90 degrees. We prepped and draped the operative extremity in a normal, sterile orthopedic fashion. We then performed a timeout with all parties in attendance in agreement the side, site, and operation be performed. No concerns were voiced and we elected to proceed. 2 g Ancef was administered for antibiotic prophylaxis prior to the incision by anesthesia staff. I first exsanguinated the operative extremity with an Esmarch bandage. Tourniquet was inflated to 250 mmHg. Tourniquet was up for approximately 45 minutes. Esmarch was removed. I planned a standard FCR approach over the flexor carpi radialis tendon along the volar wrist. Skin was sharply incised with a 15 blade scalpel down to the level of the tendon sheath. The FCR tendon sheath was identified and split longitudinally in line with the incision. I then retracted the FCR tendon ulnarly, split the floor of the tendon sheath in line with the incision. The flexor pollicis longus muscle belly was then encountered and retracted ulnarly. The pronator quadratus was then encountered. A self-retaining retractor was placed deep. Performed an L-shaped tenotomy of the pronator quadratus and subperiosteally elevated it ulnarly. This exposed the fracture site. The fracture was severely comminuted. There was bone loss noted at the radial metadiaphyseal junction. There is a sagittal split in the articular surface. Longitudinal traction and ulnar deviation as well as fracture manipulation with a dental pick yielded very little improvement with alignment. Given the degree of comminution and concern for achieving fixation in the osteopenic bone, I elected to convert to a application of a dorsal spanning plate. Utilizing the plate as a template, I marked a skin incision over the second metacarpal shaft and bare area of the distal dorsal radial shaft. Radial incision was made sharply with a 15 blade scalpel approximately 3 cm. Dorsal antebrachial fascia was opened with Littler scissors. Superficial branch of the radial nerve was protected throughout the dissection. Second compartment tendons were identified and retracted radially. The dorsum of the radial shaft was identified. I then turned my attention to the second metacarpal. Full-thickness skin flaps were developed down the level of the fascia. I worked radial to the extensor tendons to the index finger and elevated the interosseous musculature from the radial and ulnar sides of metacarpal. I then utilized a [place] elevator to create a tunnel deep to the extensor tendons and was able to visualize the end of the freer in the proximal incision. I then passed the dorsal spanning plate from the distal to proximal incision. I then secured the plate to the dorsal radial shaft with three 3.5 mm bicortical cortex screws. I then had my reproductive healthcare assistant applied traction through the index and long fingers and ulnar deviation. I then held the plate to the second metacarpal provisionally with a BB tack. Fluoroscopic images were obtained demonstrated near-anatomic alignment of the distal radius and appropriate position of the plate. I then drilled for 4 bicortical 2.7 cortex screws in the second metacarpal shaft. Final fluoroscopic images were obtained. Tourniquet was deflated and hemostasis was achieved with bipolar cautery. I thoroughly irrigated all the wounds with normal saline solution. Dermal layers were closed with interrupted buried 3-0 Vicryl suture. Skin was finally approximated with interrupted horizontal mattress 4-0 nylon suture. Sterile compression dressing was applied as well as a well-padded volar short arm fiberglass splint. Patient tolerated the procedure well without apparent complication. She was safely extubated in the operative suite and transferred to her gurney and subsequently PACU in stable condition. Need for skilled reproductive healthcare assistant: Keyla Fajardo PA-C was critical to the outcome of the case. During the course of the procedure the physician reproductive healthcare assistant played a vital role. Her intimate knowledge of my steps in the procedure aided in safe and expedient completion of the procedure. The PA played a vital role in positioning particularly in obtaining the appropriate positioning. The PA was also vital in the retraction of soft tissues during the exposure and protecting vital structures. The PA was also vital and obtaining fracture reduction and assisting with hardware placement. She also played a vital role in closure and splint application with my direct supervision. Post Operative Plan: Weightbearing: Nonweightbearing operative extremity Antibiotics: 2 g Ancef x 1 dose preoperatively DVT Prophylaxis: Aspirin 81 mg twice daily until first follow-up in 2 weeks Jara: None Dressing: Maintain splint, keep it clean dry and intact until follow-up X-Rays: 2 weeks postop in the office Pain Medication: Refill of oxycodone sent to patient pharmacy Follow-up: 2 weeks post-operatively with me in the office
[2022-09-13 15:30] VITALS: BP 153/84; BP 164/77; PULSE 58; RESP 16; O2SAT 100
[2022-09-13 15:45] VITALS: BP 159/84; BP 164/77; PULSE 59; RESP 16; O2SAT 93
[2022-09-13 16:00] VITALS: BP 164/77; BP 166/83; PULSE 60; RESP 16; TEMP 36.3; O2SAT 94
[2022-09-13 16:36] VITALS: BP 164/77
== END 2022-09-13 16:41 | disposition home or self-care (01) ==
LOC: SDC 10:32 → AC 10:33
PROVIDERS: PCP Internal Medicine; Referring Provider Student in an Organized Health Care Education/Training Program; Visit Provider Student in an Organized Health Care Education/Training Program
PROC: (CPT 25609; principal; 2022-09-13 12:25)
DX: S52.571A Other intraarticular fracture of lower end of right radius, initial encounter for closed fracture (principal); M85.80 Other specified disorders of bone density and structure, unspecified site; K21.9 Gastro-esophageal reflux disease without esophagitis; M19.90 Unspecified osteoarthritis, unspecified site; I25.10 Atherosclerotic heart disease of native coronary artery without angina pectoris; I10 Essential (primary) hypertension; E78.00 Pure hypercholesterolemia, unspecified; G47.33 Obstructive sleep apnea (adult) (pediatric); E07.9 Disorder of thyroid, unspecified; E66.3 Overweight; Z68.27 Body mass index [BMI] 27.0-27.9, adult; Z79.890 Hormone replacement therapy; Z79.899 Other long term (current) drug therapy; Z95.5 Presence of coronary angioplasty implant and graft; W18.09XA Striking against other object with subsequent fall, initial encounter
CPT/HCPCS: 25609; 64417; 36415; 71046; 73100; 76000; 80048; 84443; 85025; 93005; C1713; J7120; J2405

== ENCOUNTER → 2022-11-06 | Outpatient (CLI) | payer MEDICARE, SELFPAY ==
--- NOTE | 2022-11-06 09:50 | CDU_ITS ---
Reason For Study: Bilateral stenosis/occlusion Rt. Velocities/BP Lt. Velocities/BP Prox CCA 65.8/10.0 cm/sec. Prox CCA 101.8/11.7 cm/sec. Mid CCA 84.6/11.9 cm/sec. Mid CCA 77.6/13.8 cm/sec. Dist CCA 75.2/12.8 cm/sec. Dist CCA 69.9/16.0 cm/sec. Prox ICA 62.3/11.2 cm/sec. Prox ICA 56.7/14.9 cm/sec. Mid ICA 78.3/19.7 cm/sec. Mid ICA 69.9/20.4 cm/sec. Dist ICA 74.3/15.7 cm/sec. Dist ICA 79.8/23.7 cm/sec. Rt. ICA/CCA = 78.3/84.6=0.9. Lt. ICA/CCA = 79.8/77.6=1.0. Prox ECA 74.3/0.0 cm/sec. Prox ECA 79.8/6.2 cm/sec. Rt. Vert. 60.1/11.9 cm/sec. Lt. Vert. 57.2/11.9 cm/sec. Right Extracranial There is homogeneous, smooth atherosclerotic plaque noted in the right common carotid artery. There is homogeneous, smooth atherosclerotic plaque noted in the right internal carotid artery. There is intimal thickening but no significant atherosclerotic plaque noted in the right external carotid artery. Antegrade flow is noted in the right vertebral artery. Left Extracranial There is homogeneous, smooth atherosclerotic plaque noted in the left common carotid artery. There is intimal thickening but no significant atherosclerotic plaque noted in the left internal carotid artery. There is intimal thickening but no significant atherosclerotic plaque noted in the left external carotid artery. Antegrade flow is noted in the left vertebral artery. Procedure Carotid Duplex [id number]. This is a Carotid Duplex examination using B-mode, color flow and specral Doppler. Exam performed in department. VL/Carotid Duplex Ultrasound Interpretation Summary Minimal smooth plaque at the proximal right internal carotid artery with less t herrera 50% stenosis Less than 50% stenosis right external carotid artery Intimal thickening at the proximal left internal carotid artery with less than 50% stenosis Less than 50% stenosis left external carotid artery Patent and antegrade vertebral arteries bilaterally No change from October 07, 2018 Ordering Physician: Sophia Reza Referring Physician: Pillo Reza Performed By: Linda Sharma, COLBY, RVT
== END | disposition home or self-care (01) ==
LOC: CVS 09:48
PROVIDERS: PCP Internal Medicine; Visit Provider Internal Medicine
DX: I65.23 Occlusion and stenosis of bilateral carotid arteries (principal)
CPT/HCPCS: 93880

== ENCOUNTER 2022-11-08 09:40 | Day surgery (SDC) | payer MEDICARE, SELFPAY ==
[2022-10-30 11:18] LABS: Hematocrit 42.9 % (37-47); Hemoglobin 14.3 g/dL (12.0-15.0); Mean Corp Hgb Conc 33.3 g/dL (32-36); Mean Corpuscular Hgb 30.2 pg (27.0-32.0); Mean Corpuscular Volume 90.7 fL (81-99); Mean Platelet Vol. 10.8 fl (6.2-12.0); Platelet Count 231 K/mm3 (150-450); RBC Distribution Width CV 13.2 % (11.6-14.6); RBC Distribution Width SD 44.3 fl (35.1-43.9); Red Blood Count 4.73 M/mm3 (4.2-5.4); White Blood Count 5.6 K/mm3 (4.4-11.0)
[2022-10-30 11:48] LABS: Anion Gap 5 (5-15); BUN 14 mg/dL (7-18); BUN/Creat Ratio 14.9 RATIO (10-20); Chloride 107 mmol/L (98-107); Creatinine, Serum 0.94 mg/dL (0.55-1.02); EST Glomerular Filtration Rate 62 mL/min (>60); Est Glom Filt Rate - Afr Amer 75 mL/min (>60); Glucose 92 mg/dL (74-106); Sodium Level 141 mmol/L (136-145)
[2022-11-08 10:13] VITALS: BP 144/67; PULSE 59; RESP 18; TEMP 37; O2SAT 98; BMI 26.9
[2022-11-08] MEDS: Lactated Ringers 1,000 ML 15 ML IV (10:19)
[2022-11-08] MEDS: Cefazolin 2 GM in 0.9% Normal Saline 100 ML IV (12:49)
--- NOTE | 2022-11-08 12:49 | RAD_ITS ---
INDICATION: HARDWARE REMOVAL EXAMINATION/TECHNIQUE: X-RAY - RIGHT XR Wrist 2 Views 2 VIEWS COMPARISON: 09/13/2022, 09/02/2022 FINDINGS: 2 fluoroscopic spot films show pin tracts in the second metacarpal and distal radius from the removed fixation hardware. Comminuted fracture of the distal radius is again identified with displaced fragment of the radial styloid, stuck off of the articular surface which may be increased from the fixation views of 09/13/2022. Diffuse osteoporosis noted. RAD/Wrist 2 Views IMPRESSION: Status post hardware removal with possible change in the alignment of the displaced fragment of the distal radius. Views obtained do not permit for accurate comparison in this area was largely obscured on the intraoperative fixation views. Electronically Signed: Virgil Eagle MD at 17:38 EST ,
--- NOTE | 2022-11-08 13:34 | DCINST_ITS ---
Discharge Instructions Follow Up Care Test Results: Test results from this visit will be discussed in further detail at your follow- up appointment, if applicable. Discharge Plan Admission Primary Reason for Your Visit: Right wrist removal of hardware Attending Provider: Jr Monzon Primary Care Provider: Sophia Reza Instructions Additional Instructions / Restrictions: See preprinted instructions from your surgeons office Discharge Orders/Prescriptions Prescriptions: New oxycodone 5 mg tablet 5 mg PO Q6H PRN (Reason: pain) 7 Days Qty: 28 0RF No Action levothyroxine [Synthroid] 75 mcg tablet 88 mcg PO DAILY amlodipine-benazepril [Lotrel] 5-20 mg capsule 1 cap PO DAILY oxybutynin chloride [Ditropan XL] 5 mg tablet extended release 24hr 5 mg PO DAILY rosuvastatin [Crestor] 20 mg tablet 20 mg PO DAILY fenofibrate 160 mg tablet 160 mg tablet 160 mg PO DAILY sucralfate 1 gram tablet 1 g PO BID lansoprazole [Prevacid] 30 mg capsule,delayed release(DR/EC) 30 mg PO PRN PRN (Reason: Indigestion) escitalopram oxalate [Lexapro] 20 mg tablet 20 mg PO DAILY metoprolol tartrate 25 mg tablet 12.5 mg PO BID Caltrate + D3 Plus Minerals 300 mg-800 unit -25 mg-0.5 mg tablet 1 tab PO DAILY nitroglycerin 0.4 mg tablet, sublingual 0.4 mg SUBLINGUAL Q5-15M PRN (Reason: chest pain) Qty: 25 1RF hydrocodone-acetaminophen 5-325 mg tablet 1 tab PO Q6H PRN (Reason: pain) 3 Days Qty: 12 0RF Referrals / Follow Up: Sophia Reza DO [Primary Care Provider] - Jr Monzon DO [Med Staff - Active Staff] - Disposition Disposition (needs filled in before D/C Order can be placed): Home, Self Care
[2022-11-08 13:37] VITALS: BP 143/62; BP 144/67; PULSE 73; RESP 16; TEMP 36.5; O2SAT 95
--- NOTE | 2022-11-08 13:43 | PCM.OPRPT ---
Report of Operation Date of Procedure: 11/08/22 Description of Surgical Findings:: Preoperative diagnosis: Symptomatic hardware right wrist Postoperative diagnosis: Symptomatic hardware right wrist Procedure: Removal of dorsal right wrist spanning plate Surgeon: Jr Monzon DO Anesthesia: General endotracheal Anesthesiologist: Dr. Villanueva Complications: None apparent Drains: None Estimated blood loss: 10 cc Urinary output: None recorded IV fluids: Per anesthesia record Specimens: None Surgical implants: None Surgical indications: This is a 72-year-old female seen in the outpatient setting for a right comminuted intra-articular distal radius fracture. Open reduction internal fixation was attempted on 09/13/2022 by myself. Due to the degree of comminution, I elected to convert to a application of a dorsal spanning plate. Patient did well in the postoperative period. Interval fracture healing was noted on outpatient x-rays. Removal of hardware was recommended to initiate wrist motion. The risk, benefits, alternatives to the procedure reviewed with the patient at length and she agreed to proceed. Risk included but were not limited to bleeding, flexion, loss of life or limb, nonhealing wounds or bone, persistent pain, neurovascular injury, tendon injury, posttraumatic arthritis, stiffness, DVT or PE. Patient expressed understanding these risks and wished to proceed with surgery. Description of procedure: Patient was seen in preoperative holding area. He was identified by name, medical record number, date of . The operative extremity was marked with a surgical marker. We confirmed informed consent with the patient and all questions were answered to her satisfaction. At time of her procedure, patient was brought to the operative suite and positioned supine on a standard operating table. All bony prominences were well-padded. General anesthesia was administered. After adequate anesthesia, a well-padded pneumatic tourniquet was applied to the upper arm of the operative extremity. We then spun the bed 90 degrees. We prepped and draped the operative extremity in a normal, sterile orthopedic fashion. We then performed a timeout with all parties in attendance in agreement the side, site, and operation be performed. No concerns were voiced and we elected to proceed. 2 g Ancef was administered for antibiotic prophylaxis prior to the incision by anesthesia staff. I first exsanguinated the operative extremity with an Esmarch bandage. Tourniquet was inflated to 250 mmHg were made up for approximately 10 minutes. Esmarch was removed. I then identified our prior incisions along the dorsal distal third of the radial shaft and second metacarpal dorsum. Proximally, skin was sharply incised with 15 blade scalpel. I bluntly dissected down to level of the plate. 3 bicortical cortex screws were identified and removed without difficulty. I then turned my attention distally. Prior segment carpal incision was opened sharply with a 15 blade scalpel. I bluntly dissected down to level of the plate. 4 distal screws were identified and removed without difficulty. I then used a freer elevator to elevate the dorsal spanning plate from the second metacarpal and radial shaft respectively. I then was able to applied a Ricardo clamp to the distal aspect of the plate and remove it from the distal incision. Wounds were copiously irrigated with normal saline solution. Field blocks were administered with 10 cc 0.25% plain bupivacaine. Tourniquet was deflated. Hemostasis was achieved with bipolar cautery. Incisions were closed with buried intradermal 3-0 Vicryl suture and simple 4-0 nylon suture. A bulky sterile dressing was applied. I then placed the patient in a Velcro wrist brace. She was safely extubated in the operative suite after anesthesia was reversed. She was transferred to her [facility] and subsequent to PACU in stable condition. Post Operative Plan: Weightbearing: Nonweightbearing operative extremity Antibiotics: 2 g Ancef x 1 dose preoperatively DVT Prophylaxis: 81 mg aspirin, twice daily starting postoperative day #1 until follow-up Jara: None Dressing: Okay to remove surgical dressing postoperative day #2 and shower. Maintain brace until follow-up except for hygiene X-Rays: 2 weeks postop in the office Pain Medication: Oxycodone prescription sent to her pharmacy today Follow-up: 2 weeks post-operatively with me in the office
[2022-11-08 13:45] VITALS: BP 144/67; BP 145/69; PULSE 71; RESP 16; O2SAT 94
[2022-11-08 14:00] VITALS: BP 123/80; BP 144/67; PULSE 68; RESP 16; O2SAT 94
[2022-11-08 14:04] VITALS: BP 134/73; BP 144/67; PULSE 69; RESP 16; TEMP 37.1; O2SAT 94
[2022-11-08 15:17] VITALS: BP 123/63; BP 144/67; PULSE 78; RESP 16; TEMP 37.3; O2SAT 16
== END 2022-11-08 15:19 | disposition home or self-care (01) ==
LOC: SDC 09:43 → AC 09:44
PROVIDERS: PCP Internal Medicine; Referring Provider Student in an Organized Health Care Education/Training Program; Visit Provider Student in an Organized Health Care Education/Training Program
PROC: (CPT 20680; principal; 2022-11-08 11:10)
DX: T84.84XA Pain due to internal orthopedic prosthetic devices, implants and grafts, initial encounter (principal); I25.10 Atherosclerotic heart disease of native coronary artery without angina pectoris; I10 Essential (primary) hypertension; G47.33 Obstructive sleep apnea (adult) (pediatric); I34.0 Nonrheumatic mitral (valve) insufficiency; E78.00 Pure hypercholesterolemia, unspecified; K21.9 Gastro-esophageal reflux disease without esophagitis; M19.90 Unspecified osteoarthritis, unspecified site; Z79.890 Hormone replacement therapy; Z79.899 Other long term (current) drug therapy; Z95.5 Presence of coronary angioplasty implant and graft
CPT/HCPCS: 20680; 01830; 36415; 73100; 76000; 80048; 85027; J7120; J2405

== ENCOUNTER → 2022-11-27 | Outpatient (CLI) | payer MEDICARE, SELFPAY ==
--- NOTE | 2022-11-27 14:50 | BI_ITS ---
MAMMOGRAPHY - BILATERAL SCREENING REASON FOR EXAM: Female, 72 years old. Routine annual screening examination. PERTINENT HISTORY: Grandmother with breast cancer. TECHNIQUE: Digital bilateral breast rani (3D mammographic acquisition) in the CC and MLO projections. 2-D mediolateral oblique (MLO) and craniocaudad (CC) views of both breasts were obtained. CAD: Full Field Digital Mammography with Computer Added Detection was performed. COMPARISON: Comparison is made with prior study dated 11/05/2019 and 05/01/2018. FINDINGS: Breast Composition: The breasts are heterogeneously dense, which may obscure small masses. There are no dominant masses or suspicious calcifications. Stable small benign-appearing bilateral axillary lymph nodes. No other significant abnormalities are identified. There has been no significant change since the prior study. BI/SCRN MAMM (CAD)W/RANI BILAT IMPRESSION: Stable bilateral screening mammogram. Yearly follow-up mammogram recommended. (A) ASSESSMENT CATEGORY: BIRADS Category 2: Benign. A letter regarding these results will be sent to the patient by the facility within 30 days. Approximately 10% of breast cancers are not detected by mammography. A normal mammogram should not delay biopsy of a clinically suspicious abnormality. [id number] Electronically Signed: Mina Berry MD at 8:34 EST ,
--- NOTE | 2022-11-27 15:01 | BD_ITS ---
STUDY: DUAL ENERGY X-RAY ABSORPTIOMETRY / DXA REASON FOR EXAM: Female, 72 years old. [id number] TECHNIQUE: Bone Mineral Density (BMD) measurements of lumbar spine and bilateral hips were obtained. COMPARISON: Comparison is made with prior study dated 05/06/2018. FINDINGS: Lumbar Spine (L1-L4): g/cm2 (0.837) / T-score (-1.9) / Z-score (0.4) Findings are suggestive of osteopenia with a moderate fracture risk. Left Femur Total: g/cm2 (0.815) / T-score (-1.0) / Z-score (0.7) Left Femoral Neck: g/cm2 (0.640) / T-score (-1.9) / Z-score (0.2) Right Femur Total: g/cm2 (0.795) / T-score (-1.2) / Z-score (0.5) Right Femoral Neck: g/cm2 (0.639) / T-score (-1.9) / Z-score (0.2) The T-Scores on the most recent prior examination were: Lumbar Spine (L1-L4): There has been worsening of bone density since the previous examination. Left Femur Total: which represents an improvement of 2.1%. Right Femur Total: which represents a worsening of 0.4%. BD/Dexa Bone Density Study IMPRESSION: The patient is considered osteopenic as outlined below according to World Solomon Organization (WHO) criteria with a moderate fracture risk. There has been worsening of bone density since the previous examination. Reference Information: The T-score is the number of standard deviations above or below the standard which is normal for young adults at their peak bone mineral density. The World Health Organization (WHO) interprets the T-scores as follows: Above -1 Normal bone density Between -1 and -2.5 Osteopenia Equal to / or below -2.5 Osteoporosis As a practical clinical guideline, osteopenia may be graded as follows: Mild -1 through -1.5 Moderate -1.6 through -2.0 Severe -2.1 through -2.4 The Z-score is the number of standard deviations above or below age-matched controls. A Z-score of less than -1.5 would be considered abnormal. References: 1. NIH Osteoporosis and Related Bone Diseases www osteo.org 2. International Society for Clinical Densitometry www iscd.org 3. National Osteoporosis Foundation www nof.org Electronically Signed: Mina Berry MD at 8:49 EST ,
== END | disposition home or self-care (01) ==
LOC: OPBD 14:46
PROVIDERS: PCP Internal Medicine; Visit Provider Internal Medicine
DX: Z12.31 Encounter for screening mammogram for malignant neoplasm of breast (principal); M85.80 Other specified disorders of bone density and structure, unspecified site; Z80.3 Family history of malignant neoplasm of breast; Z78.0 Asymptomatic menopausal state
CPT/HCPCS: 77063; 77067; 77080

== ENCOUNTER 2023-01-28 09:25 | Inpatient (IN) | payer MEDICARE, SELFPAY ==
[2023-01-28] VITALS (7 sets, daily range): BP systolic 115–150; BP diastolic 64–106; PULSE 58–86; RESP 16–20; TEMP 35.7–36.9; O2SAT 96–100; BMI 27.4; BMI 24.4
--- NOTE | 2023-01-28 09:42 | EDS_ITS ---
HPI History of Present Illness Chief Complaint: Syncope Onset/Context/Timing Onset: Yesterday Context: Gradual Onset Timing: Waxes and wanes Quality: Lightheaded, dizzy Location: Generalized Worsened by: Standing Relieved by: Nothing Narrative Narrative: Patient presents with a syncopal episode that occurred earlier this morning. Patient states she had a second syncopal episode later this morning. Patient states that these came on when she got up to go to the bathroom. Patient states she would get to the bathroom and then had a syncopal episode. Patient states she got lightheaded and dizzy prior to the syncopal episodes. Patient had some nausea and vomiting. Patient states that she started feeling nauseated last evening. states patient was vomiting up black emesis. states that had the consistency of putty but denies any coffee-ground emesis. states that he checked her blood pressure after the second syncopal episode and vomiting. And it was 100/65 at home. Patient denies any chest pain or shortness of breath.. Patient admits to a mild headache. [facility] Medical History Alcohol use Arthritis Atherosclerotic heart disease of [place] coronary artery without angina pectoris Benign essential hypertension CAD (coronary artery disease) Cardiology follow-up encounter CPAP (continuous positive airway pressure) dependence Essential hypertension Gastric reflux Gastroesophageal reflux disease History of echocardiogram History of stress test Hx of fracture of wrist Hypothyroidism IBS (irritable bowel syndrome) Injury of head and neck Low iron Non-rheumatic mitral regurgitation Non-smoker Obstructive sleep apnea syndrome Post-menopausal Presence of stent in coronary artery (~07/08/09) Pure hypercholesterolemia Restless legs Shortness of breath on exertion Syncope Wears glasses Home Medications fenofibrate 160 mg tablet 160 mg PO DAILY cholesterol 10/07/18 [History Last Taken 01/27/23] rosuvastatin 20 mg tablet (Crestor) 20 mg PO DAILY cholesterol 10/07/18 [History Last Taken 01/27/23] escitalopram oxalate 20 mg tablet (Lexapro) 20 mg PO DAILY mood 10/09/18 [History Last Taken 01/27/23] cholecalciferol (vitamin D3) 125 mcg (5,000 unit) tablet 125 mcg PO DAILY supplements 01/24/23 [History Last Taken 01/27/23] cyanocobalamin (vitamin B-12) 1,000 mcg tablet 1,000 mcg PO DAILY supplement 01/24/23 [History Last Taken 01/27/23] donepezil 5 mg tablet 5 mg PO DAILY alzhelmers 01/24/23 [History Last Taken 01/27/23] ibandronate 150 mg tablet 150 mg PO QMONTH bone health 01/24/23 [History Last Taken Unknown] levothyroxine 88 mcg tablet 88 mcg PO .COMPLEX thyroid 01/24/23 [History Last Taken 01/27/23] metoprolol tartrate 25 mg tablet 12.5 mg PO BID bp 01/24/23 [History Last Taken 01/27/23] nitroglycerin 0.4 mg sublingual tablet 0.4 mg sublingual Q5-15M PRN chest pain #25 tabs 01/24/23 [Rx Last Taken Unknown] amlodipine 10 mg-benazepril 20 mg capsule 1 cap PO DAILY heart 01/28/23 [History Last Taken 01/28/23] Allergy/AdvReac Type Severity Reaction Status Date / Time clopidogrel Allergy Severe Rash Verified 01/24/23 11:12 milk Allergy Unknown Unknown Verified 01/24/23 11:12 ezetimibe [From Vytorin] AdvReac Severe myalgias Verified 01/24/23 11:12 simvastatin [From Vytorin] AdvReac Severe myalgias Verified 01/24/23 11:12 fenofibrate [From Tricor] AdvReac Unknown Unknown Verified 01/24/23 11:12 Family History Mother CAD (coronary artery disease) History of coronary artery bypass surgery Surgical History History of appendectomy History of total hysterectomy Presence of coronary angioplasty implant and graft (~07/08/09) Social History Smoking Status: Never smoker alcohol intake: current details: occasional ROS ROS ED Constitutional Constitutional ED: Reports chills; Denies fever(s) Eyes Eyes: Denies blurry vision or change in vision ENT ENT ED: Reports rhinorrhea; Denies sore throat Cardiovascular Cardiovascular: Denies chest pain or palpitations Respiratory/Chest Respiratory/Chest: Denies cough or dyspnea Gastrointestinal Gastrointestinal: Reports nausea and vomiting Genitourinary Genitourinary ED: Denies dysuria or hematuria Musculoskeletal Musculoskeletal: Denies back pain or neck pain Integumentary Denies abscess or rash Neurologic Neurologic: Reports headache(s); Denies weakness Allergic/Immunologic Allergic/Immunologic ED: Denies mouth swelling or urticaria EXAM Physical Exam Const Vital Signs: 01/28/23 09:26 01/28/23 10:35 01/28/23 12:00 Temperature 96.2 F L Temperature Source Temporal Pulse Rate 86 58 L Pulse Rate [Lying] Pulse Rate [Sitting (for 1 minute prior to obtaining)] Pulse Rate [Standing (for 1 minute prior to obtaining)] Respiratory Rate 18 20 H Respiratory Pattern Normal Blood Pressure 120/106 H 131/66 H Blood Pressure [Lying] Blood Pressure [Sitting (for 1 minute prior to obtaining)] Blood Pressure Mean 110 87 Blood Pressure Mean [Lying] Blood Pressure Mean [Sitting (for 1 minute prior to obtaining)] Pulse Ox 97 96 Oxygen Delivery Method Room Air Room Air 01/28/23 12:30 Temperature Temperature Source Pulse Rate Pulse Rate [Lying] 59 L Pulse Rate [Sitting (for 1 minute prior to obtaining)] 68 Pulse Rate [Standing (for 1 minute prior to obtaining)] 85 Respiratory Rate Respiratory Pattern Blood Pressure Blood Pressure [Lying] 127/64 H Blood Pressure [Sitting (for 1 minute prior to obtaining)] 115/68 Blood Pressure Mean Blood Pressure Mean [Lying] 85 Blood Pressure Mean [Sitting (for 1 minute prior to obtaining)] 83 Pulse Ox Oxygen Delivery Method Positive well nourished and well developed General Appearance ED: well developed and NAD HEENT Reports moist mucous membranes Neck supple and no JVD Resp normal respiratory effort and clear to auscultation bilaterally Cardio regular rate, regular rhythm and no murmurs GI normal to inspection, nondistended, normoactive bowel sounds and non-tender Palpation: soft Extremity normal to inspection General Extremety ED: Negative for edema or tenderness General Extremity: Negative for edema Neuro oriented x3, CN's II-XII intact bilaterally and no sensory deficits noted Sensorium / Orientation: alert Motor Exam: strength 5/5 throughout Psych mental status grossly normal Skin no rashes or lesions noted MDM MDM MDM Narrative Medical decision making narrative: Differential diagnosis includes upper gastrointestinal bleeding, vasovagal syncope, cardiac dysrhythmia, cardiac ischemia, electrolyte abnormality, anemia, pancreatitis, and dehydration. CBC will be obtained to assess for anemia and leukocytosis. Comprehensive metabolic profile will be obtained to assess for electrolyte abnormality, renal function, and hepatic function. Lipase will be obtained to assess for pancreatitis. PT with INR and PTT will be obtained to assess for coagulopathy. Urinalysis will be obtained to assess for hematuria and urinary tract infection. Rectal exam will be performed to assess for Hemoccult positive stools. EKG will be obtained to assess for cardiac dysrhythmia and cardiac ischemia. History & Record Review Additional record(s) reviewed:: Prior labs Lab Data Lab results narrative: CBC was reviewed and shows a mild anemia with a hemoglobin of 10.3 and hematocrit of 33.3. This has dropped from 10/30/2022 when it was 14.3. Comprehensive metabolic profile shows an elevated BUN of 68 and creatinine of 1.13. The BUN is increased compared to previous result. PT with INR and PTT were reviewed and were essentially within normal limits. High-sensitivity troponin was reviewed and was normal at 4. Lipase was reviewed and was normal at 185. Urinalysis was reviewed. There is no evidence of urinary tract infection or hematuria. Labs: Laboratory Results - last 24 hr 01/28/23 01/28/23 01/28/23 10:27 10:27 10:27 WBC 8.5 RBC 3.57 L Hgb 10.3 L Hct 32.3 L MCV 90.5 MCH 28.9 MCHC 31.9 L RDW Std Deviation 41.2 RDW Coeff of Elysia 12.5 Plt Count 202 MPV 11.4 Immature Gran % (Auto) 0.200 Neut % (Auto) 78.9 H Lymph % (Auto) 12.1 L Martin % (Auto) 7.9 Eos % (Auto) 0.4 Baso % (Auto) 0.5 Absolute Neuts (auto) 6.7 Absolute Lymphs (auto) 1.03 Nucleated RBC % 0 PT 14.7 INR 1.2 APTT 33.5 Sodium 139 Potassium 4.2 Chloride 109 H Carbon Dioxide 25.0 Anion Gap 5 BUN 68 H Creatinine 1.13 H Est GFR (MDRD) Af Amer 60 Est GFR (MDRD) Non-Af 50 L BUN/Creatinine Ratio 60.2 H Glucose 115 H Calcium 8.9 Phosphorus Magnesium Total Bilirubin 0.50 AST 13 L ALT 21 Alkaline Phosphatase 52 Troponin I High Sens 4 Total Protein 6.0 L Albumin 3.2 Globulin 2.8 Albumin/Globulin Ratio 1.1 Lipase 185 Urine Color Urine Clarity Urine pH Ur Specific [place] Urine Protein Urine Glucose (UA) Urine Ketones Urine Occult Blood Urine Nitrite Urine Bilirubin Urine Urobilinogen Ur Leukocyte Esterase Urine RBC Urine WBC Ur Squamous Epith Cells Urine Bacteria Urine Mucus 01/28/23 01/28/23 10:27 11:25 WBC RBC Hgb Hct MCV MCH MCHC RDW Std Deviation RDW Coeff of Elysia Plt Count MPV Immature Gran % (Auto) Neut % (Auto) Lymph % (Auto) Martin % (Auto) Eos % (Auto) Baso % (Auto) Absolute Neuts (auto) Absolute Lymphs (auto) Nucleated RBC % PT INR APTT Sodium Potassium Chloride Carbon Dioxide Anion Gap BUN Creatinine Est GFR (MDRD) Af Amer Est GFR (MDRD) Non-Af BUN/Creatinine Ratio Glucose Calcium Phosphorus 3.0 Magnesium 2.1 Total Bilirubin AST ALT Alkaline Phosphatase Troponin I High Sens Total Protein Albumin Globulin Albumin/Globulin Ratio Lipase Urine Color Yellow Urine Clarity Sl. Cloudy Urine pH 5.0 Ur Specific [place] 1.020 Urine Protein 15 H Urine Glucose (UA) Normal Urine Ketones Negative Urine Occult Blood Negative Urine Nitrite Negative Urine Bilirubin Negative Urine Urobilinogen Normal Ur Leukocyte Esterase Negative Urine RBC 0 SEEN Urine WBC 0 SEEN Ur Squamous Epith Cells 0 SEEN Urine Bacteria 0 SEEN Urine Mucus 0 SEEN EKG Initial EKG: Attestation: I personally reviewed and interpreted this EKG as follows: Interpretation: No Acute Injury Pattern and Sinus Bradycardia (57) Comments: EKG was obtained. On my independent interpretation, it showed a sinus bradycardia with a rate of 57. CA interval, QRS interval, and QTc in tervals were all normal. Sisters was normal. There are no acute ST or T wave changes. Prior EKG tracings: available for review Prior: Unchanged (09/12/2022) Differential Diagnosis Chest pain/SOB: pulmonary embolism Reason(s) PE less likely: Positive for not tachycardic and not hypoxic, ACS, pneumothorax Reason(s) pneumothorax less likely: Positive for bilateral breath sounds and pneumonia Reason(s) pneumonia less likely: Positive for no noted fever and symptoms not consistent with acute infection Abdominal Pain: Pancreatitis Reason(s) Pancreatitis less likely: clinical exam does not support, Bowel obstruction Reason(s) bowel obstruction less likely: bowel sounds present on exam and UTI Management Discussion w/another healthcare provider: Hospitalist and Information Systems Specialist (Dr. Garcia from gastroenterology) Treatment and Re-Evaluation :: Orthostatic vital signs were obtained. Patient's heart rate went from 59 to 85 with standing. Patient became very dizzy. Stool Hemoccult was positive. Patient was advised of the need for admission to the hospital. Case was discussed with Dr. Garcia. He recommended starting the patient on Protonix. Patient was given Protonix here. Case was discussed with the hospitalist. He will admit the patient to PCU. Patient understood and was agreeable with the plan. All questions were answered. Discharge Plan Dx/Rx/DC Orders Clinical Impression: Acute upper gastrointestinal bleeding, Syncope and collapse Disposition Disposition: Acute Care Hospital [facility] Discharge Date/Time: 01/28/23 14:40
--- NOTE | 2023-01-28 09:51 | EKG12_ITS ---
Test Reason : Blood Pressure : / mmHG Vent. Rate : 057 BPM Atrial Rate : 057 BPM P-R Int : 154 ms QRS Dur : 084 ms QT Int : 424 ms P-R-T Axes : 038 -03 062 degrees QTc Int : 412 ms Sinus bradycardia Poor R wave progression Confirmed by ROXANNE ARREAGA, ARAVIND ([id number]), medical transcription editor TERESE PRINGLE ([id number]) on 01/30/2023 10:02:10 AM Referred By: GAURI Confirmed By:ARAVIND OLIVEIRA MD
[2023-01-28 10:40] LABS: Absolute Lymphocyte Count 1.03 X10^3/uL (0.83-4.51); Absolute Neutrophil Count 6.7 X10^3/uL (2.0-7.7); Basophil# 0.04 X10^3/uL; Basophil% 0.5 % (0-1); Eosinophil# 0.03 X10^3/uL; Eosinophils% 0.4 % (0-5); Hematocrit 32.3 % (37-47); Hemoglobin 10.3 g/dL (12.0-15.0); Lymphocyte # 1.03 X10^3/ul (0.83-4.51); Lymphocyte % 12.1 % (19-41); Mean Corp Hgb Conc 31.9 g/dL (32-36); Mean Corpuscular Hgb 28.9 pg (27.0-32.0); Mean Corpuscular Volume 90.5 fL (81-99); Mean Platelet Vol. 11.4 fl (6.2-12.0); Monocyte# 0.67 X10^3/uL; Monocyte% 7.9 % (0-10); NRBC Flagged by Analyzer 0 % (0-5); Neutrophil # 6.71 X10^3/uL (2.7-7.7); Neutrophil % 78.9 % (47-70); Platelet Count 202 K/mm3 (150-450); RBC Distribution Width CV 12.5 % (11.6-14.6); RBC Distribution Width SD 41.2 fl (35.1-43.9); Red Blood Count 3.57 M/mm3 (4.2-5.4); White Blood Count 8.5 K/mm3 (4.4-11.0)
[2023-01-28 10:59] LABS: ALB/GLOB Ratio 1.1 RATIO (0.9-2.4); AST(SGOT) 13 U/L (15-37); Alanine Aminotransfer ALT/SGPT 21 U/L (13-56); Albumin, Serum 3.2 g/dL (3.2-5.0); Alkaline Phosphatase 52 U/L (45-117); Anion Gap 5 (5-15); BUN 68 mg/dL (7-18); BUN/Creat Ratio 60.2 RATIO (10-20); Calcium,Total 8.9 mg/dL (8.5-10.1); Chloride 109 mmol/L (98-107); Creatinine, Serum 1.13 mg/dL (0.55-1.02); EST Glomerular Filtration Rate 50 mL/min (>60); Est Glom Filt Rate - Afr Amer 60 mL/min (>60); Globulin 2.8 g/dL (2.2-4.2); Glucose 115 mg/dL (74-106); Lipase 185 U/L (73-393); Potassium 4.2 mmol/L (3.5-5.1); Sodium Level 139 mmol/L (136-145); Troponin-I HS 4 pg/mL (3.0-54.0)
[2023-01-28 11:29] LABS: International Normalized Ratio 1.2; Prothrombin Time (Protime)PT. 14.7 SECONDS (11.7-14.9)
[2023-01-28 11:30] LABS: Partial Thromboplast Time 33.5 Seconds (24.1-36.2)
[2023-01-28 11:37] LABS: Bacteria 0 SEEN /hpf (None Seen); Mucous, Urine 0 SEEN /hpf (<or=2+); Red Blood Cells-Urine 0 SEEN /hpf (0-5); Squamous Epithelial Cells - UA 0 SEEN /hpf (5-10); White Blood Cells 0 SEEN /hpf (0-5)
[2023-01-28 11:38] LABS: Color, Urine Yellow (Yellow); Glucose, Dipstick Normal (Normal); Ketone-Dipstick Negative (Negative); Leukocyte Esterase-Dipstick Negative /ul (Negative); Nitrite-Dipstick Negative (Negative); Occult Blood-Urine Negative /ul (Negative); Protein-Dipstick 15 mg/dl (Negative); Urine Bilirubin Dipstick Negative (Negative); Urine Clarity Sl. Cloudy (Clear); Urine Urobilinogen Normal (Normal)
--- NOTE | 2023-01-28 12:44 | ED.RN ---
incomplete assessment of orthostatic vs, on standing patient became unsteady and sat back in bed. complained of dizziness and weakness. earlier patient was able to ambulate without assistance to restroom and was noted to be steady on walking at that time.
[2023-01-28] MEDS: 0.9% Normal Saline 1,000 ML 999 ML IV (13:05)
--- NOTE | 2023-01-28 13:55 | HP.PCM.HOS_ITS ---
HPI - General General Date of Admission: 01/28/23 Date of Service: 01/28/23 Chief Complaint: Syncope 2 times. 1 episode of hematemesis. HPI Narrative ARACELIS KIM, is a 72 F with no prior history of GI bleed came to ED after second episode of syncope in the morning today. Patient is stated she felt dizzy and lightheaded on standing up, went to bathroom and after that she felt like fall therefore she slid down the wall and then passed out. Similarly second episode happened. Syncopal episodes exact duration unclear but seems short time. She denies vertigo. She also had 1 episode of vomiting black thick consistent liquid. Her checked her blood pressure at home and it was 100/65. Patient denies chest pain pressure tightness or shortness of breath but had mild headache in ED. In ED, vitals in normal range although it shows drop from lying to sitting position but not significant. She has a history of coronary artery disease status post PCI in LAD in 2019 [facility]. History of MVP. She follows Dr. Hopkins. Twelve-lead EKG shows sinus bradycardia 57 bpm, QTc 412 ms. Previous EKG in August 2022 normal sinus rhythm low voltage QRS. Patient is further admitted. FOR[facility]LY [facility], LATER [facility] Medical History Alcohol use Arthritis Atherosclerotic heart disease of [place] coronary artery without angina pectoris Benign essential hypertension CAD (coronary artery disease) Cardiology follow-up encounter CPAP (continuous positive airway pressure) dependence Essential hypertension Gastric reflux Gastroesophageal reflux disease History of echocardiogram History of stress test Hx of fracture of wrist Hypothyroidism IBS (irritable bowel syndrome) Injury of head and neck Low iron Non-rheumatic mitral regurgitation Non-smoker Obstructive sleep apnea syndrome Post-menopausal Presence of stent in coronary artery (~07/08/09) Pure hypercholesterolemia Restless legs Shortness of breath on exertion Syncope Wears glasses Home Medications fenofibrate 160 mg tablet 160 mg PO DAILY cholesterol 10/07/18 [History Last Taken 01/27/23] rosuvastatin 20 mg tablet (Crestor) 20 mg PO DAILY cholesterol 10/07/18 [History Last Taken 01/27/23] escitalopram oxalate 20 mg tablet (Lexapro) 20 mg PO DAILY mood 10/09/18 [History Last Taken 01/27/23] cholecalciferol (vitamin D3) 125 mcg (5,000 unit) tablet 125 mcg PO DAILY supplements 01/24/23 [History Last Taken 01/27/23] cyanocobalamin (vitamin B-12) 1,000 mcg tablet 1,000 mcg PO DAILY supplement 01/24/23 [History Last Taken 01/27/23] donepezil 5 mg tablet 5 mg PO DAILY alzhelmers 01/24/23 [History Last Taken 01/27/23] ibandronate 150 mg tablet 150 mg PO QMONTH bone health 01/24/23 [History Last Taken Unknown] levothyroxine 88 mcg tablet 88 mcg PO .COMPLEX thyroid 01/24/23 [History Last Taken 01/27/23] metoprolol tartrate 25 mg tablet 12.5 mg PO BID bp 01/24/23 [History Last Taken 01/27/23] nitroglycerin 0.4 mg sublingual tablet 0.4 mg sublingual Q5-15M PRN chest pain #25 tabs 01/24/23 [Rx Last Taken Unknown] amlodipine 10 mg-benazepril 20 mg capsule 1 cap PO DAILY heart 01/28/23 [History Last Taken 01/28/23] Allergy/AdvReac Type Severity Reaction Status Date / Time clopidogrel Allergy Severe Rash Verified 01/24/23 11:12 milk Allergy Unknown Unknown Verified 01/24/23 11:12 ezetimibe [From Vytorin] AdvReac Severe myalgias Verified 01/24/23 11:12 simvastatin [From Vytorin] AdvReac Severe myalgias Verified 01/24/23 11:12 fenofibrate [From Tricor] AdvReac Unknown Unknown Verified 01/24/23 11:12 Family History Mother CAD (coronary artery disease) History of coronary artery bypass surgery Surgical History History of appendectomy History of total hysterectomy Presence of coronary angioplasty implant and graft (~07/08/09) Social History Smoking Status: Never smoker alcohol intake: current details: occasional ROS ROS Narrative Constitutional: Reports fatigue and weakness, syncope as described. HEENT: Reports systems reviewed and no addt'l complaints, except as documented Respiratory/Chest: Denies chest pain, shortness of breath at rest or with exertion Gastrointestinal: No abdominal pain. Gastroesophageal reflux, nausea. 1 episode of hematemesis. Genitourinary: Denies burning urination or new urinary tract symptoms Musculoskeletal: Denies acute joint pain and limited range of motion Neurologic: Denies seizure-like activity. No strokelike symptoms. skin: No ulcer. No rash Endocrinology: Reports systems reviewed and no addt'l complaints, except as documented Hematologic/Lymphatic: Reports systems reviewed and no addt'l complaints, except as documented Rest 14 ROS are negative except as mentioned in HPI Vital Signs Vital Signs Vital Signs: 01/28/23 09:26 01/28/23 10:35 01/28/23 12:00 Temperature 96.2 F L Temperature Source Temporal Pulse Rate 86 58 L Pulse Rate [Lying] Pulse Rate [Sitting (for 1 minute prior to obtaining)] Pulse Rate [Standing (for 1 minute prior to obtaining)] Respiratory Rate 18 20 H Respiratory Pattern Normal Blood Pressure 120/106 H 131/66 H Blood Pressure [Lying] Blood Pressure [Sitting (for 1 minute prior to obtaining)] Blood Pressure Mean 110 87 Blood Pressure Mean [Lying] Blood Pressure Mean [Sitting (for 1 minute prior to obtaining)] Pulse Ox 97 96 Oxygen Delivery Method Room Air Room Air 01/28/23 12:30 Temperature Temperature Source Pulse Rate Pulse Rate [Lying] 59 L Pulse Rate [Sitting (for 1 minute prior to obtaining)] 68 Pulse Rate [Standing (for 1 minute prior to obtaining)] 85 Respiratory Rate Respiratory Pattern Blood Pressure Blood Pressure [Lying] 127/64 H Blood Pressure [Sitting (for 1 minute prior to obtaining)] 115/68 Blood Pressure Mean Blood Pressure Mean [Lying] 85 Blood Pressure Mean [Sitting (for 1 minute prior to obtaining)] 83 Pulse Ox Oxygen Delivery Method Physical Exam Narrative Physical exam: General: Alert, Oriented x3, Cooperative HEENT: Atraumatic, PERRLA, EOMI, Normocephalic Oral: Oral mucosa dry. No Gingival or Mucosal Lesions/ Ulcerations Neck: Supple, No JVD, Negative Carotid Bruits Lungs: Air entry diminished in bilateral lung bases. No crepitation/rhonchi Cardiovascular: Regular rate, Regular Rhythm, Normal S1, Normal S2, systolic murmur with click at cardiac apex Abdomen: Bowel Sounds Present, Soft, Non Tender, Non-Distended : No renal angle tenderness. No suprapubic tenderness. Extremities: No edema, Capillary Refill Less than 3 Seconds Skin: No rashes, No breakdown Musculoskeletal: No Tenderness to Palpation of Joints or Extremities Neurological: Cranial nerves II-XII grossly intact, DTR 2+/4 and Symmetrical, Neuro grossly intact Psych/Mental Status: Normal Affect, Appropriate. Results Lab / Micro Data Result Diagrams: 01/28/23 10:27 01/28/23 10:27 Labs: Laboratory Results - last 24 hr 01/28/23 10:27: PT 14.7, INR 1.2, APTT 33.5 01/28/23 10:27: WBC 8.5, RBC 3.57 L, Hgb 10.3 L, Hct 32.3 L, MCV 90.5, MCH 28.9, MCHC 31.9 L, RDW Std Deviation 41.2, RDW Coeff of Elysia 12.5, Plt Count 202, MPV 11.4, Immature Gran % (Auto) 0.200, Neut % (Auto) 78.9 H, Lymph % (Auto) 12.1 L, [place] % (Auto) 7.9, Eos % (Auto) 0.4, Baso % (Auto) 0.5, Absolute Neuts (auto) 6.7, Absolute Lymphs (auto) 1.03, Nucleated RBC % 0 01/28/23 10:27: Sodium 139, Potassium 4.2, Chloride 109 H, Carbon Dioxide 25.0, Anion Gap 5, BUN 68 H, Creatinine 1.13 H, Est GFR (MDRD) Af Amer 60, Est GFR (MDRD) Non-Af 50 L, BUN/Creatinine Ratio 60.2 H, Glucose 115 H, Calcium 8.9, Total Bilirubin 0.50, AST 13 L, ALT 21, Alkaline Phosphatase 52, Troponin I High Sens 4, Total Protein 6.0 L, Albumin 3.2, Globulin 2.8, Albumin/Globulin Ratio 1.1, Lipase 185 01/28/23 11:25: Urine Color Yellow, Urine Clarity Sl. Cloudy, Urine pH 5.0, Ur Specific [place] 1.020, Urine Protein 15 H, Urine Glucose (UA) Normal, Urine Ketones Negative, Urine Occult Blood Negative, Urine Nitrite Negative, Urine Bilirubin Negative, Urine Urobilinogen Normal, Ur Leukocyte Esterase Negative, Urine RBC 0 SEEN, Urine WBC 0 SEEN, Ur Squamous Epith Cells 0 SEEN, Urine Bacteria 0 SEEN, Urine Mucus 0 SEEN Micro: Microbiology 01/28/23 12:25 Stool Stool Occult Blood (KATELYNN) - Final Occult Blood Positive Assessment & Plan Assessment/Plan (1) Acute upper gastrointestinal bleeding: (2) Syncope and collapse: PLAN: Plan This 72-year-old female is being admitted for to time syncope episode and concern for upper GI bleed 1. Syncopal episode most likely due to hypotension/orthostatic hypotension:Patient is being admitted in PCU for IV fluid resuscitation. I do not think patient had cardiac syncope. Denies chest pain or acute shortness of breath. Twelve-lead EKG does not show acute change. Serum magnesium and jose antonio sphorus normal. Troponin negative. 2. Concern for upper GI bleed: Patient had colonoscopy many years ago and there was no significantly abnormal found. She does not remember whether she had EGD in the past. GI is consulted. Protonix 80 mg IV bolus and then 40 mg IV every 12 hourly. Lactated Ringer 150 mill per hour. Patient had 1 L of normal saline bolus in the ED. 3. Acute anemia most likely due to acute blood loss anemia: Her baseline hemoglobin is around 14 g%. Admitted with 10.3 hemoglobin. Platelet count normal. Type and crossmatch. 4. Coronary artery disease status post PCI in LAD 2008, mitral valve prolapse: Patient follows Dr. Hopkins, last seen in clinic in January 24, 2023. Patient is on baby aspirin but she states sometimes he forgets it when she is busy. Continue rosuvastatin and fenofibrate. Will hold metoprolol and baby aspirin because of hypotension, bradycardia and acute GI bleed. Last echo in September 2019 reported EF 60%, trivial TR, trivial MR PASP 25 mmHg. Pharmacological nuclear stress test was negative in September 2018. At that time baseline ECG demonstrated sinus bradycardia. 5. Hypertension and dyslipidemia: As mentioned above. Hold antihypertensive medication VTE prophylaxis: Pharmacologic is contraindicated. Bilateral SCDs. Living will/advanced directive/end of life care: Patient does have living will or advanced directive. After discussion of benefits/risks procedures involved with full code, DNR CC arrest and DNR CC, the patient and her sister opted for full code. Patient does want artificial life support including intubation, tube feed, ventilator and/chest compression, central venous catheter, vasopressor and DC shock if needed Total time spent in [id number] encounter in discussion of advanced directive 17 minutes. Charges/Coding Multi Select Codes Visit Charges Visit Charges: 06256 Init Hosp Hospitalists' Procedures Procedures: 60571 Advncd Care Plan 30 Min
--- NOTE | 2023-01-28 13:58 | NURSING ---
DR KATHERINE ASTORGA
--- NOTE | 2023-01-28 14:22 | NURSING ---
PCU KATHERINE UPPERGASTROINTESTINAL BLEEDING, SYNCOPE
[2023-01-28 14:36] LABS: Magnesium 2.1 mg/dL (1.6-2.6)
[2023-01-28] MEDS: Lactated Ringers 1,000 ML 150 ML IV ×2 (15:27→21:57)
--- NOTE | 2023-01-28 16:29 | EX.PCM.CON.G ---
HPI Consult Data Date of Consult: 01/28/23 HPI Narrative Reason for Consultation: GI bleed HPI Narrative: ARACELIS KIM, is a 72 F who presents with a syncopal episode that occurred earlier this morning.? Patient states she had a second syncopal episode later this morning.? Patient states that these came on when she got up to go to the bathroom.? Patient states she would get to the bathroom and then had a syncopal episode.? Patient states she got lightheaded and dizzy prior to the syncopal episodes.? Patient had some nausea and vomiting. ? Patient states that she started feeling nauseated last evening.? states patient was vomiting up black emesis.? states that had the consistency of putty but denies any coffee-ground emesis.? states that he checked her blood pressure after the second syncopal episode and vomiting.? And it was 100/65 at home.? Patient denies any chest pain or shortness of breath..? Patient admits to a mild headache. 01/28/23 10:27: WBC 8.5, RBC 3.57 L, Hgb 10.3 L, Hct 32.3 L, MCV 90.5, MCH 28.9, MCHC 31.9 L, RDW Std Deviation 41.2, RDW Coeff of Elysia 12.5, Plt Count 202, MPV 11.4, Immature Gran % (Auto) 0.200, Neut % (Auto) 78.9 H, Lymph % (Auto) 12.1 L, [place] % (Auto) 7.9, Eos % (Auto) 0.4, Baso % (Auto) 0.5, Absolute Neuts (auto) 6.7, Absolute Lymphs (auto) 1.03, Nucleated RBC % 0 01/28/23 10:27: Sodium 139, Potassium 4.2, Chloride 109 H, Carbon Dioxide 25.0, Anion Gap 5, BUN 68 H, Creatinine 1.13 H, Est GFR (MDRD) Af Amer 60, Est GFR (MDRD) Non-Af 50 L, BUN/Creatinine Ratio 60.2 H, Glucose 115 H, Calcium 8.9, Total Bilirubin 0.50, AST 13 L, ALT 21, Alkaline Phosphatase 52, Troponin I High Sens 4, Total Protein 6.0 L, Albumin 3.2, Globulin 2.8, Albumin/Globulin Ratio 1.1, Lipase 185 01/28/23 10:27: Phosphorus 3.0, Magnesium 2.1 PFSH Medical History Alcohol use Arthritis Atherosclerotic heart disease of [place] coronary artery without angina pectoris Benign essential hypertension CAD (coronary artery disease) Cardiology follow-up encounter CPAP (continuous positive airway pressure) dependence Essential hypertension Gastric reflux Gastroesophageal reflux disease History of echocardiogram History of stress test Hx of fracture of wrist Hypothyroidism IBS (irritable bowel syndrome) Injury of head and neck Low iron Non-rheumatic mitral regurgitation Non-smoker Obstructive sleep apnea syndrome Post-menopausal Presence of stent in coronary artery (~07/08/09) Pure hypercholesterolemia Restless legs Shortness of breath on exertion Syncope Wears glasses Home Medications fenofibrate 160 mg tablet 160 mg PO DAILY cholesterol 10/07/18 [History Last Taken 01/27/23] rosuvastatin 20 mg tablet (Crestor) 20 mg PO DAILY cholesterol 10/07/18 [History Last Taken 01/27/23] escitalopram oxalate 20 mg tablet (Lexapro) 20 mg PO DAILY mood 10/09/18 [History Last Taken 01/27/23] cholecalciferol (vitamin D3) 125 mcg (5,000 unit) tablet 125 mcg PO DAILY supplements 01/24/23 [History Last Taken 01/27/23] cyanocobalamin (vitamin B-12) 1,000 mcg tablet 1,000 mcg PO DAILY supplement 01/24/23 [History Last Taken 01/27/23] donepezil 5 mg tablet 5 mg PO DAILY alzhelmers 01/24/23 [History Last Taken 01/27/23] ibandronate 150 mg tablet 150 mg PO QMONTH bone health 01/24/23 [History Last Taken Unknown] levothyroxine 88 mcg tablet 88 mcg PO .COMPLEX thyroid 01/24/23 [History Last Taken 01/27/23] metoprolol tartrate 25 mg tablet 12.5 mg PO BID bp 01/24/23 [History Last Taken 01/27/23] nitroglycerin 0.4 mg sublingual tablet 0.4 mg sublingual Q5-15M PRN chest pain #25 tabs 01/24/23 [Rx Last Taken Unknown] amlodipine 10 mg-benazepril 20 mg capsule 1 cap PO DAILY heart 01/28/23 [History Last Taken 01/28/23] Allergy/AdvReac Type Severity Reaction Status Date / Time clopidogrel Allergy Severe Rash Verified 01/24/23 11:12 milk Allergy Unknown Unknown Verified 01/24/23 11:12 ezetimibe [From Vytorin] AdvReac Severe myalgias Verified 01/24/23 11:12 simvastatin [From Vytorin] AdvReac Severe myalgias Verified 01/24/23 11:12 fenofibrate [From Tricor] AdvReac Unknown Unknown Verified 01/24/23 11:12 Family History Mother CAD (coronary artery disease) History of coronary artery bypass surgery Surgical History History of appendectomy History of total hysterectomy Presence of coronary angioplasty implant and graft (~07/08/09) Social History Smoking Status: Never smoker alcohol intake: current details: occasional ROS Review of Systems ROS Unobtainable: other Constitutional Constitutional: Denies fatigue, fever(s), poor appetite, weight gain or weight loss ENT HEENT: Denies mouth lesions Cardiovascular Cardiovascular: Denies abdominal bloating, abdominal edema or abdominal pain Respiratory/Chest Respiratory/Chest: Denies change in mental status, change in phlegm color, chest congestion or chest tightness Gastrointestinal Gastrointestinal: Denies belching, bloating, change in bowel habits, change in stool character, chewing difficulty, coffee ground emesis, constipation, cramping, diarrhea, dyspepsia, dysphagia, early satiety, excessive flatus, fecal incontinence, heartburn, hematemesis, hematochezia, hemorrhoids, loose stools, melena, nausea, odynophagia, rectal bleeding, tenesmus, vomiting or weight changes Genitourinary Genitourinary: Denies abdominal discomfort, burning urination or itching Musculoskeletal Musculoskeletal: Reports as per HPI; Denies muscle weakness or myalgias Integumentary Integumentary: Denies jaundice Neurologic Neurologic: Denies lack of coordination or weakness Psychiatric Psychiatric: Denies confusion, depression, memory loss, mood swings, paranoia or suicidal ideation Endocrine Endocrinology: Denies systems reviewed and no addt'l complaints, except as documented Hematologic/Lymphatic Hematologic/Lymphatic: Denies anemia, easy bleeding, easy bruising or lymphadenopathy Allergic/Immunologic Allergic/Immunologic: Denies systems reviewed and no addt'l complaints, except as documented Physical Exam Const alert General Appearance: cooperative Orientation / Consciousness: oriented to person HEENT hearing grossly normal bilaterally Head and Scalp: normal to inspection Face and Sinus: face symmetric Nose: external nose normal Mouth: oral and palatal mucosa normal Eyes conjunctivae normal General Eye: normal appearance of both eyes Neck full ROM General: normal visual inspection Lymph Lymphatic: no lymphadenopathy noted Chest inspection of chest normal and palpation of chest normal Chest: symmetrical chest wall rise Resp normal respiratory effort Effort and Inspection: able to speak in complete sentences Cardio regular rate GI non-distended Percussion: normal to percussion Rectal Exam: deferred Neuro Speech: speech normal Gait (Neuro): normal gait Lab / Micro Data Result Diagrams: 01/28/23 10:27 01/28/23 10:27 Labs: Laboratory Results - last 24 hr 01/28/23 10:27: PT 14.7, INR 1.2, APTT 33.5 01/28/23 10:27: WBC 8.5, RBC 3.57 L, Hgb 10.3 L, Hct 32.3 L, MCV 90.5, MCH 28.9, MCHC 31.9 L, RDW Std Deviation 41.2, RDW Coeff of Elysia 12.5, Plt Count 202, MPV 11.4, Immature Gran % (Auto) 0.200, Neut % (Auto) 78.9 H, Lymph % (Auto) 12.1 L, [place] % (Auto) 7.9, Eos % (Auto) 0.4, Baso % (Auto) 0.5, Absolute Neuts (auto) 6.7, Absolute Lymphs (auto) 1.03, Nucleated RBC % 0 01/28/23 10:27: Sodium 139, Potassium 4.2, Chloride 109 H, Carbon Dioxide 25.0, Anion Gap 5, BUN 68 H, Creatinine 1.13 H, Est GFR (MDRD) Af Amer 60, Est GFR (MDRD) Non-Af 50 L, BUN/Creatinine Ratio 60.2 H, Glucose 115 H, Calcium 8.9, Total Bilirubin 0.50, AST 13 L, ALT 21, Alkaline Phosphatase 52, Troponin I High Sens 4, Total Protein 6.0 L, Albumin 3.2, Globulin 2.8, Albumin/Globulin Ratio 1.1, Lipase 185 01/28/23 10:27: Phosphorus 3.0, Magnesium 2.1 01/28/23 11:25: Urine Color Yellow, Urine Clarity Sl. Cloudy, Urine pH 5.0, Ur Specific [place] 1.020, Urine Protein 15 H, Urine Glucose (UA) Normal, Urine Ketones Negative, Urine Occult Blood Negative, Urine Nitrite Negative, Urine Bilirubin Negative, Urine Urobilinogen Normal, Ur Leukocyte Esterase Negative, Urine RBC 0 SEEN, Urine WBC 0 SEEN, Ur Squamous Epith Cells 0 SEEN, Urine Bacteria 0 SEEN, Urine Mucus 0 SEEN Micro: Microbiology 01/28/23 12:25 Stool Stool Occult Blood (KATELYNN) - Final Occult Blood Positive Assessment & Plan Assessment/Plan (1) Acute upper gastrointestinal bleeding: PLAN: Differential diagnosis does include peptic ulcer disease, angiodysplasia, Judie-Price tear, Delfino's erosions, hiatal hernia, gastric antral vascular ectasia. She should undergo an upper endoscopy to evaluate upper GI tract. Recommend PPI drip, H&H every 6 hours. Charges/Coding Visit Charges Inpatient E&M: 00999 Init Hosp L3
[2023-01-28 19:11] LABS: Hematocrit 28.4 % (37-47); Hemoglobin 9.2 g/dL (12.0-15.0)
[2023-01-28] MEDS: Rosuvastatin 20 MG Tablet PO (22:05)
[2023-01-28 23:50] LABS: Hematocrit 25.8 % (37-47); Hemoglobin 8.7 g/dL (12.0-15.0)
[2023-01-29] VITALS (12 sets, daily range): BP systolic 108–174; BP diastolic 66–152; PULSE 55–71; RESP 14–20; TEMP 36.5–37.1; O2SAT 93–100; BMI 24.4; BMI 24.7
[2023-01-29 06:18] LABS: Absolute Lymphocyte Count 2.29 X10^3/uL (0.83-4.51); Absolute Neutrophil Count 4.2 X10^3/uL (2.0-7.7); Basophil# 0.05 X10^3/uL; Basophil% 0.7 % (0-1); Eosinophils% 2.7 % (0-5); Hematocrit 28.4 % (37-47); Hemoglobin 9.2 g/dL (12.0-15.0); Lymphocyte # 2.29 X10^3/ul (0.83-4.51); Lymphocyte % 31.2 % (19-41); Mean Corp Hgb Conc 32.4 g/dL (32-36); Mean Corpuscular Hgb 29.7 pg (27.0-32.0); Mean Corpuscular Volume 91.6 fL (81-99); Mean Platelet Vol. 11.7 fl (6.2-12.0); Monocyte# 0.58 X10^3/uL; Monocyte% 7.9 % (0-10); NRBC Flagged by Analyzer 0 % (0-5); Neutrophil % 57.2 % (47-70); Platelet Count 195 K/mm3 (150-450); RBC Distribution Width SD 42.6 fl (35.1-43.9); White Blood Count 7.3 K/mm3 (4.4-11.0)
[2023-01-29 07:03] LABS: Anion Gap 5 (5-15); BUN 31 mg/dL (7-18); BUN/Creat Ratio 35.9 RATIO (10-20); Calcium,Total 8.6 mg/dL (8.5-10.1); Chloride 113 mmol/L (98-107); Creatinine, Serum 0.86 mg/dL (0.55-1.02); EST Glomerular Filtration Rate 68 mL/min (>60); Est Glom Filt Rate - Afr Amer 83 mL/min (>60); Estimated Creatinine Clearance 55.81 ml/min; Glucose 104 mg/dL (74-106); Sodium Level 143 mmol/L (136-145); Thyroid Stim Hormone (TSH) 1.25 uIU/mL (0.358-3.74)
[2023-01-29] MEDS: Acetaminophen 325 MG Tablet 650 MG PO (07:59)
[2023-01-29] MEDS: 0.9% Saline Lock 10 ML Syringe IV (11:05)
--- NOTE | 2023-01-29 12:06 | DCINST_ITS ---
Discharge Instructions Follow Up Care Test Results: Test results from this visit will be discussed in further detail at your follow- up appointment, if applicable. Discharge Plan Admission Admit Date/Time: 01/28/23 14:02 Attending Provider: Janak Edwards Primary Care Provider: Sophia Reza Discharge Orders/Prescriptions Prescriptions: No Action rosuvastatin [Crestor] 20 mg tablet 20 mg PO DAILY fenofibrate 160 mg tablet 160 mg tablet 160 mg PO DAILY escitalopram oxalate [Lexapro] 20 mg tablet 20 mg PO DAILY levothyroxine 88 mcg tablet 88 mcg PO .COMPLEX Rx Instructions: 88 mcg orally 1 tab by mouth daily except take one haf tab on Saturday; donepezil 5 mg tablet 5 mg PO DAILY ibandronate 150 mg tablet 150 mg PO QMONTH cholecalciferol (vitamin D3) 125 mcg (5,000 unit) tablet 125 mcg PO DAILY cyanocobalamin (vitamin B-12) 1,000 mcg tablet 1,000 mcg PO DAILY nitroglycerin 0.4 mg tablet, sublingual 0.4 mg SUBLINGUAL Q5-15M PRN (Reason: chest pain) Qty: 25 6RF metoprolol tartrate 25 mg tablet 12.5 mg PO BID Rx Instructions: 25 mg (1/2 tablet BID) amlodipine-benazepril 10-20 mg capsule 1 cap PO DAILY Referrals / Follow Up: Sophia Reza DO [Primary Care Provider] -
[2023-01-29] MEDS: Lisinopril 20 MG Tablet PO (13:12)
[2023-01-29] MEDS: Metoprolol Tartrate 25 MG Tablet 12.5 MG PO ×2 (13:13→21:45)
--- NOTE | 2023-01-29 15:29 | PN.HOSP_ITS ---
Reason for Visit Reason for Visit: Follow-up for syncope and collapse. Patient did not have any further hematemesis or melena. Patient feels dizzy when she went to bathroom. Diagnoses Gastrointestinal hemorrhage, unspecified (01/28/23) Syncope and collapse (01/28/23) Objective Data Objective Data Vital Signs: Vital Signs Temp Pulse Resp BP Pulse Ox O2 Del Method 98 F 56 L 14 146/66 H 100 Room Air 01/29/23 11:10 01/29/23 13:33 01/29/23 11:10 01/29/23 13:33 01/29/23 11:10 01/29/23 11:10 Oxygen Delivery Method Room Air Weight: 157 lb 13.616 oz Body Mass Index (BMI) 24.7 Intake & Output: Intake and Output for Last 24 Hours 01/27/23 01/28/23 01/29/23 23:59 23:59 23:59 Intake Total 3640.0 / 3880.0 1377.5 / 1377.5 Balance 3640.0 / 3880.0 1377.5 / 1377.5 Lab / Micro Data Result Diagrams: 01/29/23 05:17 01/29/23 05:17 Labs: Laboratory Results - last 24 hr 01/28/23 18:37: Hgb 9.2 L, Hct 28.4 L 01/28/23 23:05: Hgb 8.7 L, Hct 25.8 L 01/29/23 05:17: WBC 7.3, RBC 3.10 L, Hgb 9.2 L, Hct 28.4 L, MCV 91.6, MCH 29.7, MCHC 32.4, RDW Std Deviation 42.6, RDW Coeff of Elysia 13.0, Plt Count 195, MPV 11.7, Immature Gran % (Auto) 0.300, Neut % (Auto) 57.2, Lymph % (Auto) 31.2, Navarro % (Auto) 7.9, Eos % (Auto) 2.7, Baso % (Auto) 0.7, Absolute Neuts (auto) 4.2, Absolute Lymphs (auto) 2.29, Nucleated RBC % 0 01/29/23 05:17: Sodium 143, Potassium 4.0, Chloride 113 H, Carbon Dioxide 25.0, Anion Gap 5, BUN 31 H, Creatinine 0.86, Estim Creat Clear Calc 55.81, Est GFR (MDRD) Af Amer 83, Est GFR (MDRD) Non-Af 68, BUN/Creatinine Ratio 35.9 H, Glucose 104, Calcium 8.6, TSH 1.25 Micro: Microbiology 01/28/23 12:25 Stool Stool Occult Blood (KATELYNN) - Final Occult Blood Positive Physical Exam Narrative Patient blood pressure went up. In 160s to 170s. Patient put back on lisinopril and amlodipine. Physical exam: General: Alert, Oriented x3, Cooperative HEENT: Atraumatic, PERRLA, EOMI, Normocephalic Oral: Oral mucosa moist. No Gingival or Mucosal Lesions/ Ulcerations Neck: Supple, No JVD, Negative Carotid Bruits Lungs: Air entry diminished in bilateral lung bases. No crepitation/rhonchi Cardiovascular: Regular rate, Regular Rhythm, Normal S1, Normal S2, systolic murmur with click at cardiac apex Abdomen: Bowel Sounds Present, Soft, Non Tender, Non-Distended : No renal angle tenderness. No suprapubic tenderness. Extremities: No edema, Capillary Refill Less than 3 Seconds Skin: No rashes, No breakdown Musculoskeletal: No Tenderness to Palpation of Joints or Extremities Neurological: Cranial nerves II-XII grossly intact, DTR 2+/4 and Symmetrical, Neuro grossly intact Psych/Mental Status: Normal Affect, Appropriate. Assessment & Plan Assessment/Plan (1) Acute upper gastrointestinal bleeding: (2) Syncope and collapse: PLAN: Plan This 72-year-old female is being admitted for to time syncope episode and concern for upper GI bleed 1. Syncopal episode most likely due to hypotension/orthostatic hypotension:Patient is being admitted in PCU for IV fluid resuscitation. I do not think patient had cardiac syncope. Denies chest pain or acute shortness of breath. Twelve-lead EKG does not show acute change. Serum magnesium and phosphorus normal. Troponin negative. 01/29: Patient had last echo in September 2019 reported as EF 60%, trivial MR. Trivial AR. Repeat echo ordered. Patient has high blood pressure, his blood p ressure started going up. Patient put back on amlodipine and lisinopril. Enalapril 1.25 mg IV every 6 hours. For systolic blood pressure more than 180 mmHg. 2. upper GI bleed: Patient had colonoscopy many years ago and there was no significantly abnormal found. She does not remember whether she had EGD in the past. GI is consulted. Protonix 80 mg IV bolus and then 40 mg IV every 12 hourly. Lactated Ringer 150 mill per hour. Patient had 1 L of normal saline bolus in the ED. 01/23: Stool for occult blood positive. Hemoglobin 9.2. Patient is scheduled for EGD. 3. Acute anemia most likely due to acute blood loss anemia: Her baseline hemoglobin is around 14 g%. Admitted with 10.3 hemoglobin. Platelet count normal. Type and crossmatch. 4. Coronary artery disease status post PCI in LAD 2008, mitral valve prolapse: Patient follows Dr. Hopkins, last seen in clinic in January 24, 2023. Patient is on baby aspirin but she states sometimes he forgets it when she is busy. Continue rosuvastatin and fenofibrate. Will hold metoprolol and baby aspirin because of hypotension, bradycardia and acute GI bleed. Last echo in September 2019 reported EF 60%, trivial TR, trivial MR PASP 25 mmHg. Pharmacological nuclear stress test was negative in September 2018. At that time baseline ECG demonstrated sinus bradycardia. 5. Hypertension and dyslipidemia: As mentioned above. VTE prophylaxis: Pharmacologic is contraindicated. Bilateral SCDs. Living will/advanced directive/end of life care: Patient does have living will or advanced directive. After discussion of benefits/risks procedures involved with full code, DNR CC arrest and DNR CC, the patient and her sister opted for full code. Patient does want artificial life support including intubation, tube feed, ventilator and/chest compression, central venous catheter, vasopressor and DC shock if needed Total time spent in soaf-bp-hhth encounter in discussion of advanced directive 17 minutes. Charges/Coding Visit Charges Inpatient E&M: 41301 Subs Hosp L2
--- NOTE | 2023-01-29 15:34 | ECHOD_ITS ---
Reason For Study: SYNCOPE Procedure This was a 2D Doppler, Color Flow transthoracic echocardiogram. The exam was of adequate technical quality. Exam performed portable in patient room. Left Ventricle Normal LV size. Left ventricular systolic function is normal. The estimated ejection fraction is 70 %. Diastolic function is indeterminate. No regional wall motion abnormalities noted. Right Ventricle Normal RV size. Normal systolic function. Atria Normal left atrium. Normal right atrium. No doppler evidence for ASD. Mitral Valve There is no mitral annular calcification. Normal mitral valve. Mild (1+) mitral valve insufficiency. Tricuspid Valve Normal tricuspid valve. Mild tricuspid valve insufficiency. Right ventricular systolic pressure estimated to be 30 mmHg. Aortic Valve Trisinus/trileaflet aortic valve. Normal aortic valve. Pulmonic Valve The pulmonic valve is not well visualized. Great Vessels Normal sized aortic root. Pericardium/Pleural No pericardial effusion. MMode/2D Measurements & Calculations LVIDd: 4.3 cm IVSd: 0.85 cm Ao root diam: 2.9 cm LVIDs: 2.8 cm LVPWd: 0.91 cm FS: 34.5 % LAV(MOD-sp4): 49.3 ml LVAd ap4: 22.1 cm2 SV(MOD-sp4): 43.4 ml LVLd ap4: 7.2 cm EDV(MOD-sp4): 56.3 ml EDV(sp4-el): 57.5 ml LVAs ap4: 8.5 cm2 LVLs ap4: 5.0 cm ESV(MOD-sp4): 12.9 ml ESV(sp4-el): 12.3 ml EF(MOD-sp4): 77.2 % EF(sp4-el): 78.6 % SV(sp4-el): 45.1 ml LA A4 area: 18.3 cm2 LA dimension(2D): 3.8 cm RA A4 area: 12.1 cm2 Time Measurements MV dec time: 0.28 sec Doppler Measurements & Calculations MV E max broderick: 97.1 cm/sec Lat Peak E' Broderick: 7.3 cm/sec Med Peak E' Broderick: 6.2 cm/sec MV A max broderick: 119.2 cm/sec E/E' lat: 13.4 E/E' med: 15.7 MV E/A: 0.81 MV V2 max: 108.0 cm/sec Ao V2 max: 178.8 cm/sec MV max P.7 mmHg MV dec slope: 352.2 cm/sec2 Ao max P.8 mmHg MV V2 mean: 60.8 cm/sec Ao V2 mean: 115.1 cm/sec MV mean P.7 mmHg Ao mean P.2 mmHg MV V2 VTI: 40.0 cm Ao V2 VTI: 40.3 cm AV (velocity ratio): 0.87 LV V1 max: 156.3 cm/sec PA V2 max: 97.7 cm/sec TR max broderick: 258.4 cm/sec LV V1 max P.8 mmHg PA V2 mean: 68.9 cm/sec TR max P.7 mmHg LV V1 mean P.7 mmHg LV V1 mean: 99.8 cm/sec LV V1 VTI: 35.2 cm ECHO/Echo Complete Interpretation Summary Left ventricular systolic function is normal. The estimated ejection fraction is 70 %. Mild (1+) mitral valve insufficiency. Mild tricuspid valve insufficiency. Right ventricular systolic pressure estimated to be 30 mmHg. Diastolic function is indeterminate. Ordering Physician: Janak Edwards Referring Physician: Sophia Reza M.D. Performed By: Eliane Escalante RCS
[2023-01-29] MEDS: Lactated Ringers 1,000 ML 15 ML IV (16:26)
--- NOTE | 2023-01-29 18:18 | OP.EGD_ITS ---
Patient Name: Anais Escobedo Procedure Date: 01/29/2023 5:52 PM Date of : 1950 Age: 72 Procedure: Upper GI endoscopy Indications: Epigastric abdominal pain, Melena Providers: Ben Garcia DO Medicines: Monitored Anesthesia Care Patient Profile: This is a 72 year old female. Refer to note in patient chart for documentation of history and physical. Patient has symptoms of acute epigastric abdominal pain and acute dyspepsia. Complications: No immediate complications. Procedure: Pre-Anesthesia Assessment: - Prior to the procedure, a History and Physical was performed, and patient medications and allergies were reviewed. The risks and benefits of the procedure and the sedation options and risks were discussed with the patient. All questions were answered and informed consent was obtained. Patient identification and proposed procedure were verified by the physician in the pre-procedure area. Mental Status Examination: alert and oriented. Airway Examination: normal oropharyngeal airway and neck mobility. Respiratory Examination: clear to auscultation. CV Examination: normal. Prophylactic Antibiotics: The patient does not require prophylactic antibiotics. Prior Anticoagulants: The patient has taken no previous anticoagulant or antiplatelet agents. After reviewing the risks and benefits, the patient was deemed in satisfactory condition to undergo the procedure. The anesthesia plan was to use monitored anesthesia care (MAC). Immediately prior to administration of medications, the patient was re-assessed for adequacy to receive sedatives. The heart rate, respiratory rate, oxygen saturations, blood pressure, adequacy of pulmonary ventilation, and response to care were monitored throughout the procedure. The physical status of the patient was re-assessed after the procedure. After obtaining informed consent, the endoscope was passed under direct vision. Throughout the procedure, the patient's blood pressure, pulse, and oxygen saturations were monitored continuously. The Endoscope was introduced through the mouth, and advanced to the duodenal bulb. The upper GI endoscopy was accomplished without difficulty. The patient tolerated the procedure well. Scope In: 6:02:09 PM Scope Out: 6:04:29 PM Total Procedure Duration Time 0 hours 2 minutes 20 seconds Findings: One cratered esophageal ulcer with oozing blood and stigmata of recent bleeding was found 23 to 24 cm from the incisors. The lesion was 6 mm in largest dimension. Coagulation for hemostasis using heater probe was successful. Estimated blood loss was minimal. Two oozing cratered gastric ulcers with a visible vessel were found in the prepyloric region of the stomach. The largest lesion was 6 mm in largest dimension. Coagulation for hemostasis using heater probe was successful. Estimated blood loss was minimal. The second portion of the duodenum was normal. Impression: - Bleeding esophageal ulcer. Treated with a heater probe. - Oozing gastric ulcers with a visible vessel. Treated with a heater probe. - Normal second portion of the duodenum. - No specimens collected. Recommendation: - [facility]. - Full liquid diet. - Use Protonix (pantoprazole) 40 mg PO BID for 8 weeks. - Continue present medications. Procedure Code(s): --- Professional --- 30205, Esophagogastroduodenoscopy, flexible, transoral; with control of bleeding, any method CPT copyright 2017 [employer]. All rights reserved. The codes documented in this report are preliminary and upon cellar hand review may be revised to meet current compliance requirements. Ben Garcia DO 01/29/2023 6:17:34 PM This report has been signed electronically. Number of Addenda: 0 Note Initiated On: 01/29/2023 5:52 PM
--- NOTE | 2023-01-29 18:18 | OP.CCLET_ITS ---
01/29/2023 Sophia Reza [address] [place] [address] Re : Upper GI endoscopy procedure for Anais Escobedo Dear Dr. Reza This procedure was performed on Sunday, January 29, 2023. My impressions and recommendations are as follows: Impressions : - Bleeding esophageal ulcer. Treated with a heater probe. - Oozing gastric ulcers with a visible vessel. Treated with a heater probe. - Normal second portion of the duodenum. - No specimens collected. Recommendations : - [facility]. - Full liquid diet. - Use Protonix (pantoprazole) 40 mg PO BID for 8 weeks. - Continue present medications. My findings are described in the full procedure note, which is enclosed. If I can be of further assistance, please feel free to contact me at . Sincerely, Ben Garcia, 01/29/2023 6:17:34 PM This report has been signed electronically.
[2023-01-29] MEDS: amLODIPine 10 MG Tablet PO (21:45)
[2023-01-29] MEDS: Rosuvastatin 20 MG Tablet PO (21:45)
[2023-01-30 05:02] VITALS: BP 153/69; PULSE 75; RESP 20; TEMP 36.9; O2SAT 99
[2023-01-30] MEDS: Levothyroxine 88 MCG Tablet PO (05:06)
[2023-01-30 05:46] LABS: Absolute Lymphocyte Count 1.38 X10^3/uL (0.83-4.51); Absolute Neutrophil Count 5.9 X10^3/uL (2.0-7.7); Basophil# 0.04 X10^3/uL; Basophil% 0.5 % (0-1); Eosinophil# 0.14 X10^3/uL; Eosinophils% 1.7 % (0-5); Hematocrit 27.8 % (37-47); Hemoglobin 9.1 g/dL (12.0-15.0); Lymphocyte # 1.38 X10^3/ul (0.83-4.51); Mean Corp Hgb Conc 32.7 g/dL (32-36); Mean Corpuscular Hgb 29.4 pg (27.0-32.0); Mean Corpuscular Volume 89.7 fL (81-99); Mean Platelet Vol. 11.3 fl (6.2-12.0); Monocyte# 0.61 X10^3/uL; Monocyte% 7.5 % (0-10); NRBC Flagged by Analyzer 0 % (0-5); Neutrophil # 5.94 X10^3/uL (2.7-7.7); Neutrophil % 72.9 % (47-70); Platelet Count 179 K/mm3 (150-450); RBC Distribution Width CV 12.8 % (11.6-14.6); RBC Distribution Width SD 41.5 fl (35.1-43.9); White Blood Count 8.1 K/mm3 (4.4-11.0)
[2023-01-30 06:00] VITALS: BMI 24.4
[2023-01-30 06:14] LABS: Anion Gap 8 (5-15); BUN 17 mg/dL (7-18); Calcium,Total 8.7 mg/dL (8.5-10.1); Chloride 112 mmol/L (98-107); Creatinine, Serum 0.85 mg/dL (0.55-1.02); EST Glomerular Filtration Rate 69 mL/min (>60); Est Glom Filt Rate - Afr Amer 84 mL/min (>60); Estimated Creatinine Clearance 56.47 ml/min; Glucose 112 mg/dL (74-106); Potassium 3.7 mmol/L (3.5-5.1); Sodium Level 144 mmol/L (136-145)
--- NOTE | 2023-01-30 08:28 | DCINST_ITS ---
Discharge Instructions Diet Discharge Diet: [place] diet (Advised clear liquids today and tomorrow and bland diet for next 5 days), 2000 mg Sodium Diet and - Activity Discharge Activity: Return to Normal Activity Weight Bearing Status: Weight bearing as tolerated Dressing / Incision Call your doctor if you observe: Fever of 101 or Higher, Coldness, Increased Pain, Numbness or Tingling, Change in Color, Inability to urinate, Inability to have a bowel movement, Using more than 1 pad per hour, Shortness of breath, Dizziness, Fainting spells, Swelling in the ankles, Chest pain, Prolonged hiccupping, Increased palpitations (irregular heartbeat) and Calf discomfort Follow Up Care When: IN 2 WEEKS Test Results: Test results from this visit will be discussed in further detail at your follow- up appointment, if applicable. Discharge Plan Admission Admit Date/Time: 01/29/23 16:29 Attending Provider: Janak Edwards Primary Care Provider: Sophia Reza Discharge Orders/Prescriptions Prescriptions: New amlodipine 10 mg Tablet 10 mg PO DAILY Qty: 30 2RF lisinopril 30 mg tablet 30 mg PO DAILY Qty: 30 2RF pantoprazole [Protonix] 40 mg tablet,delayed release (DR/EC) 40 mg PO BID Qty: 60 2RF Rx Instructions: advised TWICE DAILY FOR 2 WEEKS THEN ONCE DAILY ferrous sulfate [FeroSul] 325 mg (65 mg iron) tablet 325 mg PO DAILY Qty: 30 1RF ascorbic acid (vitamin C) 500 mg tablet 500 mg PO BID Qty: 60 1RF Continued rosuvastatin [Crestor] 20 mg tablet 20 mg PO DAILY fenofibrate 160 mg tablet 160 mg tablet 160 mg PO DAILY escitalopram oxalate [Lexapro] 20 mg tablet 20 mg PO DAILY levothyroxine 88 mcg tablet 88 mcg PO .COMPLEX Rx Instructions: 88 mcg orally 1 tab by mouth daily except take one haf tab on Saturday; donepezil 5 mg tablet 5 mg PO DAILY ibandronate 150 mg tablet 150 mg PO QMONTH cholecalciferol (vitamin D3) 125 mcg (5,000 unit) tablet 125 mcg PO DAILY cyanocobalamin (vitamin B-12) 1,000 mcg tablet 1,000 mcg PO DAILY nitroglycerin 0.4 mg tablet, sublingual 0.4 mg SUBLINGUAL Q5-15M PRN (Reason: chest pain) Qty: 25 6RF metoprolol tartrate 25 mg tablet 12.5 mg PO BID Rx Instructions: 25 mg (1/2 tablet BID) Discontinued amlodipine-benazepril 10-20 mg capsule 1 cap PO DAILY Referrals / Follow Up: Sophia Reza DO [Primary Care Provider] - Within 2 Weeks Ben Garcia DO [Med Staff - Active Staff] - Within 2 Weeks (For upper GI bleed) Disposition Disposition (needs filled in before D/C Order can be placed): Home, Self Care
[2023-01-30 09:08] VITALS: BP 138/67; PULSE 74; RESP 16; TEMP 37.1; O2SAT 100
[2023-01-30 09:15] VITALS: BP 138/67; PULSE 74
[2023-01-30] MEDS: Cholecalciferol (Vit D3) 125 MCG CAPSULE (5,000 UNITS) PO (09:15)
[2023-01-30] MEDS: Metoprolol Tartrate 25 MG Tablet 12.5 MG PO (09:15)
[2023-01-30] MEDS: Cyanocobalamin 500 MCG Tablet 1000 MCG PO (09:15)
[2023-01-30] MEDS: amLODIPine 10 MG Tablet PO (09:16)
[2023-01-30] MEDS: Escitalopram Oxalate 20 MG Tablet PO (09:16)
[2023-01-30] MEDS: Fenofibrate 145 MG Tablet PO (09:16)
[2023-01-30] MEDS: Donepezil HCl 5 MG Tablet PO (09:16)
[2023-01-30] MEDS: Lisinopril 10 MG Tablet 30 MG PO (09:22)
--- NOTE | 2023-01-30 09:32 | PCM.DC.SUM ---
Providers Date of Admission: 01/29/23 Date of Discharge: 01/30/23 Primary Care Physician: Dr. Sophia Reza DO Reason For Visit: SYNCOPE DUE TO GI BLEED Diagnosis Discharge Diagnosis (1) Acute upper gastrointestinal bleeding: Status: Acute Code(s): K92.2 - Gastrointestinal hemorrhage, unspecified (2) Syncope and collapse: Status: Acute Code(s): R55 - Syncope and collapse Plan This 72-year-old female is being admitted for to time syncope episode and concern for upper GI bleed 1. Syncopal episode most likely due to hypotension/orthostatic hypotension:Patient is being admitted in PCU for IV fluid resuscitation. I do not think patient had cardiac syncope. Denies chest pain or acute shortness of breath. Twelve-lead EKG does not show acute change. Serum magnesium and phosphorus normal. Troponin negative. 01/29: Patient had last echo in September 2019 reported as EF 60%, trivial MR. Trivial AR. Repeat echo ordered. Patient has high blood pressure, his blood pressure started going up. Patient put back on amlodipine and lisinopril. Enalapril 1.25 mg IV every 6 hours, as needed for systolic blood pressure more than 180 mmHg. 01/30: Blood pressure is much better. Dizziness and headache has much improved almost resolved.BP 138/67. Patient was advised to follow with PCP for control of blood pressure as it might help to be controlled gradually with adaptation to vital organs for perfusion. 2. upper GI bleed: Patient had colonoscopy many years ago and there was no significantly abnormal found. She does not remember whether she had EGD in the past. GI is consulted. Protonix 80 mg IV bolus and then 40 mg IV every 12 hourly. Lactated Ringer 150 mill per hour. Patient had 1 L of normal saline bolus in the ED. 01/29: Stool for occult blood positive. Hemoglobin 9.2. Patient is scheduled for EGD. 01/30: Patient had EGD which shows bleeding esophageal ulcer and oozing gastric ulcer with visible vessel, treated with heater probe. Protonix 40 mg p.o. twice daily for 8 weeks. Continue full liquid diet. 3. Acute blood loss anemia from bleeding esophageal ulcer and oozing gastric ulcer: Her baseline hemoglobin is around 14 g%. Admitted with 10.3 hemoglobin. Platelet count normal. Type and crossmatch. Prescription given for ferrous sulfate and ascorbic acid. 4. Coronary artery disease status post PCI in LAD 2008, mitral valve prolapse: Patient follows Dr. Hopkins, last seen in clinic in January 24, 2023. Patient is on baby aspirin but she states sometimes he forgets it when she is busy. Continue rosuvastatin and fenofibrate. Will hold metoprolol and baby aspirin because of hypotension, bradycardia and acute GI bleed. Last echo in September 2019 reported EF 60%, trivial TR, trivial MR PASP 25 mmHg. Pharmacological nuclear stress test was negative in September 2018. At that time baseline ECG demonstrated sinus bradycardia. 5. Hypertension and dyslipidemia: As mentioned above. VTE prophylaxis: Pharmacologic is contraindicated. Bilateral SCDs. Living will/advanced directive/end of life care: Patient does have living will or advanced directive. After discussion of benefits/risks procedures involved with full code, DNR CC arrest and DNR CC, the patient and her sister opted for full code. Patient does want artificial life support including intubation, tube feed, ventilator and/chest compression, central venous catheter, vasopressor and DC shock if needed Discharge medication reconciliation done. Discharge follow-up instructions completed. Discharge process discussed with the patient and all questions were answered to patient's satisfaction. Total time spent, exact 35 minutes on discharge meds reconciliation, examination, coordination of care with nurses and ancillary staff, review of imaging and blood test and discussion with the patient on follow-up instructions. Medications at Discharge Home Medications fenofibrate 160 mg tablet 160 mg PO DAILY cholesterol 10/07/18 rosuvastatin 20 mg tablet (Crestor) 20 mg PO DAILY cholesterol 10/07/18 escitalopram oxalate 20 mg tablet (Lexapro) 20 mg PO DAILY mood 10/09/18 cholecalciferol (vitamin D3) 125 mcg (5,000 unit) tablet 125 mcg PO DAILY supplements 01/24/23 cyanocobalamin (vitamin B-12) 1,000 mcg tablet 1,000 mcg PO DAILY supplement 01/24/23 donepezil 5 mg tablet 5 mg PO DAILY alzhelmers 01/24/23 ibandronate 150 mg tablet 150 mg PO [facility] bone health 01/24/23 levothyroxine 88 mcg tablet 88 mcg PO .COMPLEX thyroid 01/24/23 metoprolol tartrate 25 mg tablet 12.5 mg PO BID bp 01/24/23 nitroglycerin 0.4 mg sublingual tablet 0.4 mg sublingual Q5-15M PRN chest pain #25 tabs 01/24/23 amlodipine 10 mg tablet 10 mg PO DAILY #30 tabs 01/30/23 ascorbic acid (vitamin C) 500 mg tablet 500 mg PO BID #60 tabs 01/30/23 ferrous sulfate 325 mg (65 mg iron) tablet (FeroSul) 325 mg PO DAILY #30 tabs 01/30/23 lisinopril 30 mg tablet 30 mg PO DAILY #30 tabs 01/30/23 pantoprazole 40 mg tablet,delayed release (Protonix) 40 mg PO BID #60 tabs 01/30/23 Physical Exam Narrative Patient blood pressure went up. BP is more controlled, 138/67. Patient still gets mild dizzy on standing or walking but has much improved. Headache has resolved. Patient advised that with changing blood pressure medication she might have dizziness and she should stay down or lay down when she feels dizzy, tries not to stand up or walk. Physical exam: General: Alert, Oriented x3, Cooperative HEENT: Atraumatic, PERRLA, EOMI, Normocephalic Oral: Oral mucosa moist. No Gingival or Mucosal Lesions/ Ulcerations Neck: Supple, No JVD, Negative Carotid Bruits Lungs: Air entry diminished in bilateral lung bases. No crepitation/rhonchi Cardiovascular: Regular rate, Regular Rhythm, Normal S1, Normal S2, systolic murmur with click at cardiac apex Abdomen: Bowel Sounds Present, Soft, Non Tender, Non-Distended : No renal angle tenderness. No suprapubic tenderness. Extremities: No edema, Capillary Refill Less than 3 Seconds Skin: No rashes, No breakdown Musculoskeletal: No Tenderness to Palpation of Joints or Extremities Neurological: Cranial nerves II-XII grossly intact, DTR 2+/4 and Symmetrical, Neuro grossly intact Psych/Mental Status: Normal Affect, Appropriate. Weight / BMI Weight Weight: 156 lb 1.396 oz Body Mass Index (BMI) 24.4 ABG / Lab / Microbiology Data Result Diagrams: 01/30/23 04:58 01/30/23 04:58 Laboratory: Laboratory Results - last 24 hr 01/30/23 04:58: WBC 8.1, RBC 3.10 L, Hgb 9.1 L, Hct 27.8 L, MCV 89.7, MCH 29.4, MCHC 32.7, RDW Std Deviation 41.5, RDW Coeff of Elysia 12.8, Plt Count 179, MPV 11.3, Immature Gran % (Auto) 0.400, Neut % (Auto) 72.9 H, Lymph % (Auto) 17.0 L, [place] % (Auto) 7.5, Eos % (Auto) 1.7, Baso % (Auto) 0.5, Absolute Neuts (auto) 5.9, Absolute Lymphs (auto) 1.38, Nucleated RBC % 0 01/30/23 04:58: Sodium 144, Potassium 3.7, Chloride 112 H, Carbon Dioxide 24.0, Anion Gap 8, BUN 17, Creatinine 0.85, Estim Creat Clear Calc 56.47, Est GFR (MDRD) Af Amer 84, Est GFR (MDRD) Non-Af 69, BUN/Creatinine Ratio 20.0, Glucose 112 H, Calcium 8.7 Microbiology: Microbiology 01/28/23 12:25 Stool Stool Occult Blood (KATELYNN) - Final Occult Blood Positive Meaningful Use Info Meaningful Use Diagnoses (Choose all that apply): None applicable Discharge Plan Admission Admit Date/Time: 01/29/23 16:29 Attending Provider: Janak Edwards Primary Care Provider: Sophia Reza Discharge Orders/Prescriptions Prescriptions: New amlodipine 10 mg Tablet 10 mg PO DAILY Qty: 30 2RF lisinopril 30 mg tablet 30 mg PO DAILY Qty: 30 2RF pantoprazole [Protonix] 40 mg tablet,delayed release (DR/EC) 40 mg PO BID Qty: 60 2RF Rx Instructions: advised TWICE DAILY FOR 2 WEEKS THEN ONCE DAILY ferrous sulfate [FeroSul] 325 mg (65 mg iron) tablet 325 mg PO DAILY Qty: 30 1RF ascorbic acid (vitamin C) 500 mg tablet 500 mg PO BID Qty: 60 1RF Continued rosuvastatin [Crestor] 20 mg tablet 20 mg PO DAILY fenofibrate 160 mg tablet 160 mg tablet 160 mg PO DAILY escitalopram oxalate [Lexapro] 20 mg tablet 20 mg PO DAILY levothyroxine 88 mcg tablet 88 mcg PO .COMPLEX Rx Instructions: 88 mcg orally 1 tab by mouth daily except take one haf tab on Saturday; donepezil 5 mg tablet 5 mg PO DAILY ibandronate 150 mg tablet 150 mg PO QMONTH cholecalciferol (vitamin D3) 125 mcg (5,000 unit) tablet 125 mcg PO DAILY cyanocobalamin (vitamin B-12) 1,000 mcg tablet 1,000 mcg PO DAILY nitroglycerin 0.4 mg tablet, sublingual 0.4 mg SUBLINGUAL Q5-15M PRN (Reason: chest pain) Qty: 25 6RF metoprolol tartrate 25 mg tablet 12.5 mg PO BID Rx Instructions: 25 mg (1/2 tablet BID) Discontinued amlodipine-benazepril 10-20 mg capsule 1 cap PO DAILY Referrals / Follow Up: Sophia Reza DO [Primary Care Provider] - Within 2 Weeks Ben Garcia DO [Med Staff - Active Staff] - Within 2 Weeks (For upper GI bleed) Disposition Disposition (needs filled in before D/C Order can be placed): Home, Self Care Charges/Coding Visit Charges Inpatient E&M: 17653 Disch Hosp >30min
--- NOTE | 2023-01-30 10:30 | CASEMGMT ---
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 Yvonne romero/Fish CONTRERAS, sitting in chair in room and provided the following information. Care providers, pharmacy, and demographics verified/updated at this time. PCP: Dr Reza Specialists: Dr Hopkins-cardiology Preferred Pharmacy: [facility] Retail Insurance: [employer]ly Prescription BeYesnefit:? Living Will/HPOA:?Has done both. Yvonne romero, Fish, is HCPOA LNOK: yvonne Whitten. [id number], Naheed. Living Arrangements: Lives w/Fish in 2-story home w/3 steps to enter thru the garage, no steps to enter thru front door. Pt is indep w/ADL's. Pt and Fish share home mgmt tasks. Transportation:?Fish DME: ?Pt uses no DME and Fish denies needs.? HHC/SNF: No hx of either. No needs identified. Pt exited bathroom after the above info obtained. She also denies having any discharge planning needs or concerns. PLAN:??Home w/support of Fish/yvonne romero/BEN SYKESN?RN?CM
--- NOTE | 2023-01-30 10:54 | PHA.DC.MC ---
Pharmacy Service has performed discharge medication reconciliation and counseling for this patient. 1. LISINOPRIL 30MG PO DAILY 2. PANTOPRAZOLE 40MG PO BID X 8 WEEKS, THEN ONCE DAILY 3. FERROUS SULFATE 325MG PO DAILY 4. ASCORBIC ACID 500MG PO BID The patient's discharge medication list was reviewed for discrepancies and discrepancies were resolved. Home Medications fenofibrate 160 mg tablet 160 mg PO DAILY cholesterol 10/07/18 rosuvastatin 20 mg tablet (Crestor) 20 mg PO DAILY cholesterol 10/07/18 escitalopram oxalate 20 mg tablet (Lexapro) 20 mg PO DAILY mood 10/09/18 cholecalciferol (vitamin D3) 125 mcg (5,000 unit) tablet 125 mcg PO DAILY supplements 01/24/23 cyanocobalamin (vitamin B-12) 1,000 mcg tablet 1,000 mcg PO DAILY supplement 01/24/23 donepezil 5 mg tablet 5 mg PO DAILY alzhelmers 01/24/23 ibandronate 150 mg tablet 150 mg PO [facility] bone health 01/24/23 levothyroxine 88 mcg tablet 88 mcg PO .COMPLEX thyroid 01/24/23 metoprolol tartrate 25 mg tablet 12.5 mg PO BID bp 01/24/23 nitroglycerin 0.4 mg sublingual tablet 0.4 mg sublingual Q5-15M PRN chest pain #25 tabs 01/24/23 amlodipine 10 mg tablet 10 mg PO DAILY #30 tabs 01/30/23 ascorbic acid (vitamin C) 500 mg tablet 500 mg PO BID #60 tabs 01/30/23 ferrous sulfate 325 mg (65 mg iron) tablet (FeroSul) 325 mg PO DAILY #30 tabs 01/30/23 lisinopril 30 mg tablet 30 mg PO DAILY #30 tabs 01/30/23 pantoprazole 40 mg tablet,delayed release (Protonix) 40 mg PO BID #60 tabs 01/30/23 The patient was counseled on the following discharge medications and changes in medications for homegoing were reviewed. The Reason for Use, instructions for use, and potential side effects were reviewed for all new medications. The patient's questions regarding all of their medications were answered. The patient was able to verbally demonstrate an understanding of their discharge medications.
== END 2023-01-30 11:43 | disposition home or self-care (01) | DRG 381 ==
LOC: ED 14:04 → PCU 14:13
PROVIDERS: Internal Medicine Gastroenterology; Admitting Provider Internal Medicine; Emergency Provider Emergency Medicine; PCP Internal Medicine; Visit Provider Internal Medicine
PROC: 0DJ08ZZ Inspection of Upper Intestinal Tract, Via Natural or Artificial Opening Endoscopic (ICD-10-PCS; CPT 43235; principal; 2023-01-29 16:10)
DX: K22.11 Ulcer of esophagus with bleeding (principal); D62 Acute posthemorrhagic anemia; K25.4 Chronic or unspecified gastric ulcer with hemorrhage; I10 Essential (primary) hypertension; E78.00 Pure hypercholesterolemia, unspecified; I34.1 Nonrheumatic mitral (valve) prolapse; I25.10 Atherosclerotic heart disease of native coronary artery without angina pectoris; I95.1 Orthostatic hypotension; K21.9 Gastro-esophageal reflux disease without esophagitis; Z79.83 Long term (current) use of bisphosphonates; Z79.899 Other long term (current) drug therapy; Z95.1 Presence of aortocoronary bypass graft; Z95.5 Presence of coronary angioplasty implant and graft
CPT/HCPCS: 36415; 80048; 80053; 81001; 82274; 83690; 83735; 84100; 84443; 84484; 85014; 85018; 85025; 85610; 85730; 93005; 93306; 94668; 97162; 97166; 99285; J7030; J7120; A4216; J3490

== ENCOUNTER → 2023-02-22 | Outpatient (CLI) | payer MEDICARE, SELFPAY ==
[2023-02-22 15:46] LABS: Absolute Lymphocyte Count 1.44 X10^3/uL (0.83-4.51); Basophil# 0.06 X10^3/uL; Basophil% 0.8 % (0-1); Eosinophil# 0.22 X10^3/uL; Eosinophils% 2.9 % (0-5); Hematocrit 35.1 % (37-47); Hemoglobin 11.5 g/dL (12.0-15.0); Lymphocyte # 1.44 X10^3/ul (0.83-4.51); Lymphocyte % 19.2 % (19-41); Mean Corp Hgb Conc 32.8 g/dL (32-36); Mean Corpuscular Hgb 30.7 pg (27.0-32.0); Mean Corpuscular Volume 93.6 fL (81-99); Mean Platelet Vol. 10.6 fl (6.2-12.0); Monocyte# 0.73 X10^3/uL; Monocyte% 9.7 % (0-10); NRBC Flagged by Analyzer 0 % (0-5); Neutrophil # 5.02 X10^3/uL (2.7-7.7); Neutrophil % 67.1 % (47-70); Platelet Count 227 K/mm3 (150-450); RBC Distribution Width CV 13.8 % (11.6-14.6); RBC Distribution Width SD 47.8 fl (35.1-43.9); Red Blood Count 3.75 M/mm3 (4.2-5.4); Reticulocyte Count 1.65 % (0.5-1.5); White Blood Count 7.5 K/mm3 (4.4-11.0)
[2023-02-22 16:22] LABS: Ferritin 68 ng/mL (8-252); Iron 90 ug/dL (50-170); Iron Binding Capacity,Total 370 ug/dL (250-450); PERCENT IRON SATURATION 24.3 % (15.0-55.0)
[2023-02-25 17:07] LABS: Endomysial Antibody IgA Negative (Negative)
[2023-02-26 11:14] LABS: Immunoglobulin A 193 mg/dL (64-422); t-Transglutaminase IgA <2 U/mL (0-3)
== END | disposition home or self-care (01) ==
LOC: LABSPEC 15:32
PROVIDERS: PCP Internal Medicine; Referring Provider Internal Medicine Gastroenterology; Visit Provider Internal Medicine Gastroenterology
DX: I10 Essential (primary) hypertension (principal); I34.1 Nonrheumatic mitral (valve) prolapse; D64.9 Anemia, unspecified
CPT/HCPCS: 36415; 82728; 82784; 83516; 83540; 83550; 85025; 85045; 86255

== ENCOUNTER → 2024-01-17 | Outpatient (CLI) | payer MEDICARE, SELFPAY ==
--- NOTE | 2024-01-17 12:53 | BI_ITS ---
MAMMOGRAPHY - BILATERAL SCREENING REASON FOR EXAM: Female, 73 years old. Routine annual screening examination. PERTINENT HISTORY: Grandmother with breast cancer. Remote right excisional breast biopsy. TECHNIQUE: Digital bilateral breast rani (3D mammographic acquisition) in the CC and MLO projections. 2-D mediolateral oblique (MLO) and craniocaudad (CC) views of both breasts were obtained. CAD: Full Field Digital Mammography with Computer Added Detection was performed. COMPARISON: Comparison is made with prior study dated May 27, 2023 and November 05, 2019. FINDINGS: Breast Composition: There are scattered areas of fibroglandular density. There are no dominant masses or suspicious calcifications. Stable small benign-appearing bilateral axillary lymph nodes. No other significant abnormalities are identified. There has been no significant change since the prior study. BI/SCRN MAMM (CAD)W/RANI BILAT IMPRESSION: Stable bilateral screening mammogram. Yearly follow-up mammogram recommended. (A) ASSESSMENT CATEGORY: BIRADS Category 2: Benign. A letter regarding these results will be sent to the patient by the facility within 30 days. Approximately 10% of breast cancers are not detected by mammography. A normal mammogram should not delay biopsy of a clinically suspicious abnormality. [id number] Electronically Signed: Mina Berry MD at 14:49 EST ,
== END | disposition home or self-care (01) ==
LOC: OPBI 12:52
PROVIDERS: PCP Internal Medicine; Referring Provider Internal Medicine; Visit Provider Internal Medicine
DX: Z12.31 Encounter for screening mammogram for malignant neoplasm of breast (principal)
CPT/HCPCS: 77063; 77067

== ENCOUNTER 2024-08-07 12:00 | Outpatient (RCR) | payer MEDICARE, SELFPAY | END 2024-08-07 19:00 | disposition home or self-care (01) | LOC: PT 12:00 | PROVIDERS: PCP Internal Medicine; Referring Provider Internal Medicine; Visit Provider Internal Medicine | DX: R10.31 Right lower quadrant pain (principal); M54.31 Sciatica, right side; R10.2 Pelvic and perineal pain; M53.3 Sacrococcygeal disorders, not elsewhere classified | CPT/HCPCS: 97110; 97161 ==

== ENCOUNTER → 2025-02-09 | Outpatient (CLI) | payer MEDICARE, SELFPAY ==
--- NOTE | 2025-02-09 10:01 | BI_ITS ---
PROCEDURE: SCRN MAMM (CAD)W/RANI BILAT REASON FOR EXAM: F, Age 74 y/o , presents for annual screening mammogram. Family history of breast cancer in a maternal grandmother at age 50. TECHNIQUE: Bilateral screening digital breast tomosynthesis with 2D and 3D images. Computer aided detection. COMPARISON: 01/17/2024, 11/27/2022, 11/05/2019 FINDINGS: There are scattered areas of fibroglandular density. No suspicious masses, areas of developing architectural distortion, or suspicious calcifications. BI/SCRN MAMM (CAD)W/RANI BILAT IMPRESSION: There is no mammographic evidence of malignancy. BI-RADS 1: NEGATIVE. RECOMMEND ANNUAL MAMMOGRAPHIC SCREENING. Follow-up code: Routine Follow-up The patient will be notified of the results by letter. Reading Location: [id number]
--- NOTE | 2025-02-09 10:08 | BD_ITS ---
PROCEDURE: DEXA BONE DENSITY STUDY REASON FOR EXAM: None provided TECHNIQUE: DEXA scan of the lumbar spine and hip(s). COMPARISON: 11/27/2022 FINDINGS: LUMBAR SPINE: Bone mineral denisty, L3-L4: 0.81 g/cm??? T-score: -2.6 LEFT FEMORAL NECK: Bone mineral denisty: 0.592 g/cm??? T-score: -2.3 LEFT TOTAL HIP: Bone mineral denisty: 0.754 g/cm??? T-score: -1.5 RIGHT FEMORAL NECK: Bone mineral denisty: 0.594 g/cm??? T-score: -2.3 RIGHT TOTAL HIP: Bone mineral denisty: 0.714 g/cm??? T-score: -1.9 FRAX*: 10 Year Probability of Fracture: Major Osteoporotic Fracture(1): 23% Hip Fracture(2): 6.3% *FRAX is a trademark of the [employer]'s [place] for Metabolic Bone Disease, World Health Organization (WHO) Collaborating [place]. 1-Major Osteoporotic Fracture: Clinical Spine, Forearm, Hip or Shoulder. 2-The 10-year probability of fracture may be lower than reported if the patient has received treatment. BD/Dexa Bone Density Study IMPRESSION: 1. Osteoporosis. 2. Since 11/27/2022, there has been a decrease of 10.2% in the bone mineral den sity of the total right hip. 3. Additional description as above. Reading Location: [id number]
== END | disposition home or self-care (01) ==
LOC: OPBD 09:59
PROVIDERS: PCP Internal Medicine; Referring Provider Internal Medicine; Visit Provider Internal Medicine
DX: Z12.31 Encounter for screening mammogram for malignant neoplasm of breast (principal); Z80.3 Family history of malignant neoplasm of breast; Z78.0 Asymptomatic menopausal state; M81.0 Age-related osteoporosis without current pathological fracture
CPT/HCPCS: 77063; 77067; 77080

== ENCOUNTER 2025-03-23 13:33 | Outpatient (CLI) | payer MEDICARE, SELFPAY ==
[2025-03-23 13:40] VITALS: BP 146/63; PULSE 51; RESP 16; TEMP 35.6; O2SAT 97; BMI 26.3
[2025-03-23] MEDS: DENOSUMAB 60 MG/ML SC (13:46)
== END 2025-03-23 23:59 | disposition home or self-care (01) ==
LOC: MEDOUTP 13:33
PROVIDERS: PCP Internal Medicine; Referring Provider Internal Medicine; Visit Provider Internal Medicine
DX: M81.0 Age-related osteoporosis without current pathological fracture (principal)
CPT/HCPCS: 96372; J0897

== ENCOUNTER 2025-09-21 13:52 | Outpatient (CLI) | payer MEDICARE, SELFPAY ==
[2025-09-21 13:57] VITALS: BP 130/68; PULSE 50; RESP 16; TEMP 35.6
[2025-09-21] MEDS: DENOSUMAB 60 MG/ML SC (14:01)
== END 2025-09-21 23:59 | disposition home or self-care (01) ==
LOC: MEDOUTP 13:52
PROVIDERS: PCP Internal Medicine; Referring Provider Internal Medicine; Visit Provider Internal Medicine
DX: M81.0 Age-related osteoporosis without current pathological fracture (principal)
CPT/HCPCS: 96372; J0897

== ENCOUNTER → 2025-10-01 | Outpatient (CLI) | payer MEDICARE, SELFPAY ==
[2025-10-01 10:06] LABS: Hematocrit 41.4 % (37-47); Hemoglobin 13.6 g/dL (12.0-15.0); Immature Granulocytes Count 0.010 X10^3/uL (0.0-0.0); Mean Corp Hgb Conc 32.9 g/dL (32-36); Mean Corpuscular Volume 89.4 fL (81-99); Mean Platelet Vol. 11.1 fl (6.2-12.0); NRBC Flagged by Analyzer 0 % (0-5); Platelet Count 229 K/mm3 (150-450); RBC Distribution Width CV 13.0 % (11.6-14.6); RBC Distribution Width SD 42.7 fl (35.1-43.9); Red Blood Count 4.63 M/mm3 (4.2-5.4); White Blood Count 7.0 K/mm3 (4.4-11.0)
[2025-10-01 10:47] LABS: AST(SGOT) 17 U/L (<=31); Alanine Aminotransfer ALT/SGPT 13 U/L (<=34); Albumin, Serum 4.3 g/dL (3.4-4.8); Alkaline Phosphatase 43 U/L (35-104); Anion Gap 10 (5-15); BUN 23 mg/dL (4-19); BUN/Creat Ratio 18.9 RATIO (10-20); Bilirubin, Direct 0.21 mg/dL (0.00-0.30); Calcium,Total 9.3 mg/dL (7.6-11.0); Carbon Dioxide 27.0 mmol/L (21.0-32.0); Chloride 107 mmol/L (98-108); Globulin 2.4 g/dL (2.2-4.2); Glucose 96 mg/dL (70-99); Potassium 3.8 mmol/L (3.3-5.1); Vitamin B12 965 pg/mL (180-914); Vitamin D,25 Hydroxy 60.8 ng/mL (30-100)
== END | disposition home or self-care (01) ==
PROVIDERS: PCP Internal Medicine; Referring Provider Internal Medicine; Visit Provider Internal Medicine
DX: E55.9 Vitamin D deficiency, unspecified (principal); E53.8 Deficiency of other specified B group vitamins; E78.00 Pure hypercholesterolemia, unspecified; E03.9 Hypothyroidism, unspecified; R73.03 Prediabetes
CPT/HCPCS: 36415; 80053; 82248; 82306; 82607; 83695; 84443; 85025

== ENCOUNTER → 2025-10-05 | Outpatient (CLI) | payer MEDICARE, SELFPAY ==
[2025-10-05 08:36] LABS: Mucous, Urine 0 SEEN /hpf (<or=2+); Red Blood Cells-Urine 0 SEEN /hpf (0-5); Squamous Epithelial Cells - UA 0 SEEN /hpf (5-10)
[2025-10-05 10:02] LABS: Color, Urine Yellow (Yellow); Glucose, Dipstick Normal (Normal); Ketone-Dipstick Negative (Negative); Leukocyte Esterase-Dipstick Negative /ul (Negative); Nitrite-Dipstick Negative (Negative); Occult Blood-Urine Negative /ul (Negative); Protein-Dipstick Negative (Negative); Specific Gravity, Urine 1.015 (1.002-1.030); Urine Bilirubin Dipstick Negative (Negative)
[2025-10-05 10:46] LABS: Creatinine, Urine (random) 89.30 mg/dL (28.00-217.00); Microalbumin,Random Urine < 12.0 mg/L (<20 mg/L)
== END | disposition home or self-care (01) ==
LOC: CIMLAB 08:33 → LABSPEC 08:36
PROVIDERS: PCP Internal Medicine; Referring Provider Internal Medicine; Visit Provider Internal Medicine
DX: E55.9 Vitamin D deficiency, unspecified (principal); E53.8 Deficiency of other specified B group vitamins; E78.00 Pure hypercholesterolemia, unspecified; E03.9 Hypothyroidism, unspecified; R73.09 Other abnormal glucose
CPT/HCPCS: 81001; 82043; 82570